=== PATIENT | male | born 1955 | race Caucasian/White ===

== ENCOUNTER → 2018-11-03 14:21 | Outpatient (CLI) | payer MEDICARE, SELFPAY ==
--- NOTE | 2018-11-03 14:22 | CT_ITS ---
STUDY: CT ABDOMEN AND PELVIS WITH AND WITHOUT CONTRAST REASON FOR EXAM: Male, 63 years old. Hematuria, bladder stones, difficulty with urination. RADIATION DOSAGE (If Supplied By Facility): CTDIvol = ( 21.44 ) mGy, DLP = ( 2622.14 ) mGycm TECHNIQUE: Transaxial images were obtained from the dome of the diaphragm to the symphysis pubis without oral contrast. 100 ml of Isovue 300 contrast was administered. Sagittal and coronal images were reconstructed. Imaging was obtained precontrast, portal venous phase and renal excretory phase of contrast. Individualized dose optimization techniques were used for this CT. COMPARISON: CT abdomen and pelvis 08/23/2016. FINDINGS: Body wall soft tissues: No acute process. Osseous structures: No acute process. Inferior chest: Lung bases clear, normal distal esophagus. No cardiomegaly or pericardial effusion. Mild aortic valve leaflet calcifications are present. Minimal coronary calcifications are visible in the proximal RCA. Hepatobiliary: Normal. Pancreas: Mild atrophy. Spleen: Normal. Adrenal glands: Normal. Urogenital: Right renal superior pole cyst measuring 7.5 mm, grossly simple cystic features, too small for definitive characterization. 3 left renal cysts, Bosniak category 1 simple cystic features, the largest measuring 3.5 cm. Otherwise normal right and left kidneys with symmetric nephrograms and symmetric excretion of contrast. Normal collecting systems and ureters. There is moderately prominent circumferential thickening of the wall of the urinary bladder, with mild trabeculation. There is a small diverticulum inferior medial to the left ureterovesical junction which contains small calculi. There are a few additional small diverticula of the left and right bladder wall containing stones. There are numerous small individual calcifications layering within the gallbladder. The prostate is enlarged, mildly bulging into the base of the urinary bladder, measuring approximately 6.1 cm craniocaudal, 4.4 cm anterior-posterior, and 4.5 cm transverse. Symmetric and unremarkable seminal vesicles. Pelvic floor and sidewalls and retroperitoneum: No mass or adenopathy. Vasculature: Mild atherosclerosis. Stomach: No acute process. Small bowel and mesentery: No acute process. Large bowel: Normal appendix. Diverticulosis without diverticulitis. Normal rectum. Free fluid or free air: None. CT/CT Abd/Pelvis W/WO Contrast IMPRESSION: 1. Numerous small bladder calculi. Each of the calculi measures in the range of 3 to 5 mm. Bladder wall thickening and trabeculation with small diverticula. Prostatomegaly, mild to moderate. The bladder calculi could be associated with prostatomegaly and partial bladder with obstruction but could also be associated with neurogenic bladder. 2. Benign left renal cysts. A very small cyst of the right kidney is too small for definitive characterization. Electronically Signed: Rich Alexis MD at 12:18 EST Tel , Service support ,
== END ==
PROVIDERS: Referring Provider Urology; Visit Provider Urology
DX: N21.0 Calculus in bladder (principal); R31.9 Hematuria, unspecified
CPT/HCPCS: 74178; Q9967

== ENCOUNTER 2018-11-30 05:49 | Day surgery (SDC) | payer MEDICARE, SELFPAY ==
[2018-11-23 13:32] VITALS: BP 146/74; PULSE 84; RESP 16; TEMP 37.1; O2SAT 97; BMI 28.2
--- NOTE | 2018-11-23 13:43 | SDCEKG_ITS ---
Test Reason : Blood Pressure : / mmHG Vent. Rate : 069 BPM Atrial Rate : 069 BPM P-R Int : 152 ms QRS Dur : 098 ms QT Int : 388 ms P-R-T Axes : 048 -05 046 degrees QTc Int : 415 ms Normal sinus rhythm Nonspecific T wave abnormality Abnormal ECG Confirmed by OCTAVIANO HARTLEY, INNA ([id number]), editor managing newspaper NICKY ARTEAGA ([id number]) on 11/24/2018 11:14:26 AM Referred By: Shubham Chin Confirmed By:INNA BRUMFIELD MD
--- NOTE | 2018-11-29 16:03 | PCM.HP.BLA ---
History and Physical Date of Admission: 11/30/18 63 yo male with h/o BPH on ct scan found to have enlarge prostate bladder stones having problems voiding. ALLERGIES: None MEDICATIONS: Flomax 0.4 mg capsule 1 capsule PO Q HS Herbs PSH: Cysto Bladder Stone >2.5cm - 09/09/2016 Cystoscopy Retrogrades - 09/09/2016 PSH Notes: surgery on rectum, cut a muscle NON- PSH: Colonoscopy - 2013 Patient not documented to have received pneumococcal vaccination PMH: Gross hematuria - 10/31/2018 Feeling of incomplete bladder emptying - 05/10/2017 Benign prostatic hyperplasia with lower urinary tract symptoms - 2016 Calculus in bladder - 08/24/2016 Calculus of ureter - 08/24/2016 NON- PMH: None Immunizations: None FAMILY HISTORY: Kidney Stones - Father SOCIAL HISTORY: Marital Status: Single Preferred Language: Slovenian; Ethnicity: Not Or ; Race: White Current Smoking Status: Patient has never smoked. Smoking cessation counseling was provided. Does not use smokeless tobacco. Light Drinker. Does not use drugs. Does not drink caffeine. Has not had a blood transfusion. REVIEW OF SYSTEMS: Constitutional: Patient denies fever, chills, weight loss, and weight gain. Genitourinary: Patient reports get up at night to void, frequent urination, and blood in the urine. Patient denies difficulty starting stream, urinary retention, frequent uti's, leakage of urine, bedwetting, painful urination, history of stones, and weak stream/scanty. Notes: Reviewed previous review of systems 10/31/2018. No changes. VITAL SIGNS: 11/08/2018 08:52 AM Weight 180 lb / 81.65 kg Height 70 in / 177.8 cm BP 126/82 mmHg BMI 25.8 kg/m? - BMI Counseling was provided. PHYSICAL EXAMINATION: Scrotum: No lesions. No edema. No cysts. No warts. Testes: No tenderness, no swelling, no enlargement left testes. No tenderness, no swelling, no enlargement right testes. Normal location left testes. Normal location right testes. No mass, no cyst, no varicocele, no hydrocele left testes. No mass, no cyst, no varicocele, no hydrocele right testes. Urethral Meatus: Normal size. No lesion, no wart, no discharge, no polyp. Normal location. Penis: Circumcised, no warts, no cracks. No dorsal Peyronie's plaques, no left corporal Peyronie's plaques, no right corporal Peyronie's plaques, no scarring, no warts. No balanitis, no meatal stenosis. Prostate: Prostate about 50 grams. Left lobe normal consistency, right lobe normal consistency. Symmetrical lobes. No prostate nodule. Left lobe no tenderness, right lobe no tenderness. MULTI-SYSTEM PHYSICAL EXAMINATION: Constitutional: Well-nourished. No physical deformities. Normally developed. Good grooming. Neck: Neck symmetrical, not swollen. Normal tracheal position. Respiratory: No labored breathing, no use of accessory muscles. Cardiovascular: Normal temperature, normal extremity pulses, no swelling, no varicosities. Lymphatic: No enlargement of neck, axillae, groin. Skin: No paleness, no jaundice, no cyanosis. No lesion, no ulcer, no rash. Neurologic / Psychiatric: Oriented to time, oriented to place, oriented to person. No depression, no anxiety, no agitation. Gastrointestinal: No mass, no tenderness, no rigidity, non obese abdomen. Eyes: Normal conjunctivae. Normal eyelids. Ears, Nose, Mouth, and Throat: Left ear no scars, no lesions, no masses. Right ear no scars, no lesions, no masses. Nose no scars, no lesions, no masses. Normal hearing. Normal lips. Musculoskeletal: Normal gait and station of head and neck. PAST DATA REVIEWED: Source Of History: Patient Records Review: Previous Patient Records Urine Test Review: Urinalysis 08/24/16 PSA Total PSA 1.35 ng/mL Notes [facility] [address] [place], [place] [address]. [place], [place], [id number] This test was performed using the TPSA assay method for the [employer] chemistry system. Values obtained with different assay methods cannot be used interchangably. When changing PSA assays in the course of monitoring a patient, additional sequential testing should be carried out to confirm baseline values. PROCEDURES: Urinalysis - 71652 Dipstick Dipstick Cont'd Specimen: Voided Blood: Neg Appearance: Clear Protein: Neg Color: Yellow Urobilinogen: Neg Glucose: Normal Nitrites: Neg Bilirubin: Neg Leukocyte Esterase: Neg Ketones: Neg ASSESSMENT: ICD-10 Details 1 : Benign prostatic hyperplasia with lower urinary tract symptoms - N40.1 2 Calculus in bladder - N21.0 3 Feeling of incomplete bladder emptying - R39.14 PLAN: Schedule Procedure: Unspecified Date - Cystoscopy TURP - 28603 Document Letter(s): Created for Patient: Clinical Summary The risks, benefits, and some of the possible complications of the proposed procedure were discussed with the patient at length and in detail including the possibility of postoperative urinary urgency, frequency, incontinence, dysuria, hematuria, retrograde ejaculation, urinary retention, bladder neck contracture, and urethral stricture, as well as the need for a bladder biopsy, retrograde pyelograms, resection of a bladder lesion, dilation of the urethra, postoperative catheterization, placement of a ureteral stent, discovering asymptomatic prostate cancer and others. The possible need for postoperative treatments including further surgical procedures was discussed with the patient. The general risks of the operative procedure and the perioperative period were discussed with the patient at length and in detail including swelling, pain, nausea, fever, infection, wound infection, sepsis, renal failure, internal or external bleeding, postoperative formation of scar tissue, the need for blood transfusions, deep venous thrombosis or blood clots, pulmonary embolus, pulmonary complications and cardiac complications. All of the patient's questions were answered and he voiced an understanding of these risks, benefits and possible complications. The patient gave fully informed consent to proceed with the procedure. Notes: plan for TURP and laser bladder stone tentative date november 30
[2018-11-30] VITALS (11 sets, daily range): BP systolic 115–141; BP diastolic 58–86; PULSE 67–76; RESP 16–18; TEMP 36.4–36.8; O2SAT 88–98; BMI 28.2
[2018-11-30] MEDS: Cefazolin 2 GM in 0.9% Normal Saline 100 ML IV (07:24)
--- NOTE | 2018-11-30 07:30 | PROS_PTH ---
PATIENT: KIMMIE BERRY [place] [facility] [place][id number] AGE/SX: 63/M ROOM: RE11/30/[address]: Dr. Shubham Chin MD : [id number] BED: DIS: 12/01/2018 SPEC #: [id number] RECD: 11/30/18 13:10 STATUS: KAE ANTONIO #: [id number] HENRIETTA: 11/30/18 07:[address]: Shubham Chin DEPT: SURGICAL PATHOLOGY RECD BY: Bon San ENTERED: 11/30/18 13:43 SP TYPE: TURP OTHR DR: No Primary Care Phys Tissues: Prostate, NOS Procedures: Surgery Specimen Level IV HEADER OPERATION: Cysto, litholapaxy, laser PRE-OP DIAGNOSIS: Benign prostatic hyperplasia with lower urinary tract symptoms TISSUE SUBMITTED: Bladder stones and prostate chips MICROSCOPIC DIAGNOSIS Bladder stones and prostate chips, TUR: Benign prostatic hyperplasia, glandular and stromal type. Chronic inflammation. Fragments of stone (gross only). JACQUELINE:angelo 12/01/18 MICROSCOPIC DESCRIPTION Slides are reviewed. GROSS DESCRIPTION Received in fixative is one container labeled with the patient's name and designated bladder stones and prostate tissue. The specimen consists of multiple irregular fragments of [id number] soft tissue mixed with multiple fragments of stones. The entire specimen weighs 20.5 gm and measures 7 x 7 x 2 cm. The stone fragments consist of [id number] irregular fragments that in aggregate measure 4 x 4 x 1.5 cm and the soft tissue measures 6 x 5 x 2 cm. More than 95% of the specimen is submitted in 12 cassettes. The stones are for gross identification only. / JACQUELINE:angelo 11/30/18 TC:5 CPT: 99723
--- NOTE | 2018-11-30 09:14 | DCINST_ITS ---
Discharge Diet: Light diet - advance as tolerated Discharge Activity: May not drive while taking narcotic pain medications. Call your doctor if your incision/area has: Continuous Slow Oozing, Sudden Increased Bleeding, Increased Redness, Foul Smelling Discharge, Swelling at the incision site Call your doctor if you observe: Fever of 101 or Higher Instructions: Transurethral Resection of the Prostate (TURP): Home Recovery Allergies/Adverse Reactions: Allergies No Known Allergies Allergy (Verified 11/23/18 13:21) Medications to take at Discharge Tamsulosin HCl [Flomax] 0.4 mg PO DAILY 14 Days capsule 08/23/16 Ciprofloxacin [Cipro] 500 mg PO BID #14 tablet 11/30/18 Ibuprofen 600 mg PO Q6H PRN PRN #20 tablet 11/30/18 The following prescriptions were given: Ibuprofen 600 mg PO Q6H PRN PRN #20 tablet PRN Reason: Pain Ciprofloxacin [Cipro] 500 mg PO BID #14 tablet Primary Care Physician: Care Physician,No Primary [Primary Care Provider] - Test Results: Test results from this visit will be discussed in further detail at your follow- up appointment, if applicable. Please Follow Up With: Shubham Chin MD When: in 2 weeks, please call to make an appointment.
--- NOTE | 2018-11-30 09:14 | PCM.OPRPT ---
Report of Operation Date of Procedure: 11/30/18 Pre-Operative Diagnosis: Bladder stones and BPH with obstruction Post-Operative Diagnosis: Same Surgery/Procedure Performed:: Cystoscopy laser cystolitholapaxy of multiple large bladder stones and evacuation of bladder stones and transurethral resection of the prostate. Description of Surgical Findings:: 63-year-old male with a history of BPH and obstruction he presented to the office with more urinary symptoms cystoscopy was performed is found to have a multitude of stones within the bladder large collection of bladder stones because of this I recommended we remove the bladder stones of the laser and evacuate the bladder stones performed cystolitholapaxy and also perform a TURP for his obstructive prostate. 63-year-old male taken back to the operating room after smooth induction of general anesthesia he was placed supine on the table and then a dorsolithotomy position. We had a change the table because there was a broken piece on the prior table. We then placed the patient in dorsolithotomy position penis and testicles were prepped and draped in usual sterile fashion went into the bladder with a 26 Macanese continuous flow resectoscope I then placed the laser bridge to the resectoscope and then laser the stones inside the bladder with 1000 ?m laser fiber using energy fibers of 3.5 J and 6 Hz after lasering the stones I evacuated all the fragments out of the bladder we then switched over to the resectoscope he had a enlarged median lobe causing obstruction he had bilateral lobes as well median lobe was resected down to the bladder neck fibers resected back to the verumontanum I then resected the right lobe the prostate back to the verumontanum resect the left lobe the prostate back to the verumontanum very carefully resected the apical tissue sphincter was intact at the end of the dissection all the flapping tissue was resected he had a nice wide open channel from the sphincter all the way into the bladder the bladder was heavily trabeculated with many saccules diverticuli is very small no large diverticulum was seen all the small fragments and then removed all the prostate chips were removed and then the catheter was put into the bladder on continuous bladder irrigation is taken back to PACU good condition. Type of Anesthesia:: General Drains: 3 way vincent 22 fr. - Admit VTE Documentation VTE Present on Admission: No
[2018-11-30] MEDS: 0.9% Normal Saline 1,000 ML 75 ML IV (11:47)
[2018-11-30] MEDS: Tamsulosin HCl 0.4 MG Capsule PO (11:47)
[2018-11-30] MEDS: Pantoprazole Sodium 40 MG Tablet PO (11:47)
[2018-11-30] MEDS: Docusate Sodium 100 MG Capsule PO ×2 (11:47→21:17)
[2018-11-30] MEDS: 0.9% NaCl Peripheral Flush Adult/Peds IV (11:48)
[2018-11-30] MEDS: Ciprofloxacin 400 MG/200 ML BAG 200 MG IV (14:20)
[2018-12-01] MEDS: 0.9% Normal Saline 1,000 ML 75 ML IV (00:25)
[2018-12-01 03:25] VITALS: BP 131/55; PULSE 64; RESP 18; TEMP 36.8; O2SAT 95
[2018-12-01] MEDS: Ciprofloxacin 400 MG/200 ML BAG 200 MG IV (03:30)
[2018-12-01 06:42] LABS: Hematocrit 38.6 % (40-54); Hemoglobin 12.4 g/dl (13.0-16.5); Mean Corp Hgb Conc 32.1 g/gl (32-36); Mean Corpuscular Hgb 29.6 pg (27.0-32.0); Mean Corpuscular Volume 92.1 fL (80-94); Mean Platelet Vol. 10.2 fl (6.2-12.0); Platelet Count 187 K/mm3 (150-450); Red Blood Count 4.19 M/mm3 (4.6-6.2); White Blood Count 9.9 K/mm3 (4.4-11.0)
[2018-12-01 06:49] LABS: Anion Gap 6 (5-15); BUN 21 mg/dL (7-18); BUN/Creat Ratio 17.8 RATIO (10-20); Calcium,Total 7.9 mg/dL (8.5-10.1); Chloride 109 mmol/L (98-107); Creatinine, Serum 1.18 mg/dL (0.70-1.30); EST Glomerular Filtration Rate 66 mL/min (>60); Est Glom Filt Rate - Afr Amer 80 mL/min (>60); Estimated Creatinine Clearance 64.44 ml/min; Glucose 116 mg/dL (74-106); Potassium 4.1 mmol/L (3.5-5.1); Sodium Level 141 mmol/L (136-145)
[2018-12-01 06:50] LABS: Scan Indicated on CBC? Y/N NO
--- NOTE | 2018-12-01 07:38 | PCM.PN.BLA ---
Progress Note s/p turp doing well this am irrigtion slow, urine light pink dc vincent home after voids x 3 check pvr call if > 200cc
[2018-12-01 09:25] VITALS: BP 128/75; PULSE 66; RESP 18; TEMP 36.7; O2SAT 96
[2018-12-01] MEDS: Docusate Sodium 100 MG Capsule PO (09:38)
[2018-12-01] MEDS: Tamsulosin HCl 0.4 MG Capsule PO (09:38)
[2018-12-01] MEDS: Pantoprazole Sodium 40 MG Tablet PO (09:39)
== END 2018-12-01 13:24 | disposition home or self-care (01) ==
LOC: SDC 05:56 → AC 05:56 → MS3 08:31
PROVIDERS: Referring Provider Urology; Visit Provider Urology
PROC: (CPT 52318; principal; 2018-11-30 07:15)
PROC: (CPT 52318; 2018-11-30 07:15)
DX: N21.0 Calculus in bladder (principal); N40.1 Benign prostatic hyperplasia with lower urinary tract symptoms; N13.8 Other obstructive and reflux uropathy
CPT/HCPCS: 52318; 52601; 36415; 80048; 85027; 88305; 93005; J7030; J7120; A4216; J0744; J2405

== ENCOUNTER → 2019-02-28 | Outpatient (CLI) | payer MEDICARE, SELFPAY ==
[2018-11-30 10:49] VITALS: BMI 28.2
[2019-02-28 10:54] LABS: Hematocrit 47.5 % (40-54); Hemoglobin 15.5 g/dl (13.0-16.5); Mean Corp Hgb Conc 32.6 g/gl (32-36); Mean Corpuscular Hgb 28.5 pg (27.0-32.0); Mean Corpuscular Volume 87.3 fL (80-94); Mean Platelet Vol. 10.4 fl (6.2-12.0); Platelet Count 185 K/mm3 (150-450); RBC Distribution Width SD 45.5 fl (35.1-43.9); Red Blood Count 5.44 M/mm3 (4.6-6.2); White Blood Count 4.8 K/mm3 (4.4-11.0)
[2019-02-28 10:55] LABS: Scan Indicated on CBC? Y/N NO
[2019-02-28 11:24] LABS: Anion Gap 6 (5-15); BUN 28 mg/dL (7-18); BUN/Creat Ratio 21.2 RATIO (10-20); Calcium,Total 9.2 mg/dL (8.5-10.1); Chloride 103 mmol/L (98-107); Creatinine, Serum 1.32 mg/dL (0.70-1.30); EST Glomerular Filtration Rate 58 mL/min (>60); Est Glom Filt Rate - Afr Amer 70 mL/min (>60); Glucose 107 mg/dL (74-106); Potassium 4.2 mmol/L (3.5-5.1); Sodium Level 138 mmol/L (136-145)
== END | disposition home or self-care (01) ==
LOC: LAB 10:18
PROVIDERS: Referring Provider Urology; Visit Provider Urology
DX: N40.0 Benign prostatic hyperplasia without lower urinary tract symptoms (principal); R53.83 Other fatigue
CPT/HCPCS: 36415; 80048; 84153; 84403; 85027

== ENCOUNTER 2021-11-23 07:38 | Emergency (ER) | payer MEDICARE, SELFPAY ==
[2021-11-23 07:39] VITALS: BP 154/97; PULSE 101; RESP 16; TEMP 35.7; O2SAT 98; BMI 25.8
--- NOTE | 2021-11-23 08:01 | EDS_ITS ---
HPI History of Present Illness Chief Complaint: Cold Sx Narrative Narrative: Patient is a 66-year-old male who states he has had approximately 5 days of nasal congestion sore throat cough and fatigue. He denies any known sick contacts or history of smoking or lung disorder or need for supplemental oxygen. He states he is fully vaccinated against Covid. He reports that he did a telemetry visit with his family doctor and was placed on a Z-Mello which he has taken 2 doses of. He states despite this he has had no symptom improvement and therefore comes to the hospital for evaluation [facility] Home Medications tamsulosin 0.4 mg PO DAILY 14 Days capsule 08/23/16 [Rx Last Taken Unknown] ciprofloxacin HCl 500 mg PO BID #14 tablet 11/30/18 [Rx Last Taken Unknown] ibuprofen 600 mg PO Q6H PRN PRN #20 tab 11/30/18 [Rx Last Taken Unknown] azelastine 2 spray INTRANASAL BID #30 ml 11/23/21 [Rx Last Taken Unknown] prednisone 20 mg PO DAILY 5 Days #5 tab 11/23/21 [Rx Last Taken Unknown] promethazine-codeine 5 ml PO Q6H PRN 7 Days #140 ml 11/23/21 [Rx Last Taken Unknown] Allergy/AdvReac Type Severity Reaction Status Date / Time No Known Allergies Allergy Verified 11/23/21 07:41 Social History Smoking Status: Never smoker [facility] ED Constitutional Constitutional ED: Reports chills, fever(s) and subjective ENT ENT ED: Reports ear pain, rhinorrhea and sore throat Cardiovascular Cardiovascular: Denies chest pain Respiratory/Chest Respiratory/Chest: Reports cough and sputum; Denies dyspnea Gastrointestinal Gastrointestinal: Denies abdominal pain, diarrhea, nausea or vomiting Genitourinary Genitourinary ED: Denies dysuria Musculoskeletal Musculoskeletal: Reports myalgias Integumentary Denies rash Neurologic Neurologic: Denies headache(s) Hematologic/Lymphatic Hematologic/Lymphatic: Denies easy bleeding or easy bruising EXAM Physical Exam Const Vital Signs: 11/23/21 07:39 11/23/21 07:49 Temperature 96.2 F L Temperature Source Temporal Pulse Rate 101 H Respiratory Rate 16 Respiratory Effort Short of Breath Blood Pressure 154/97 H Blood Pressure Mean 116 Pulse Ox 98 Oxygen Delivery Method Room Air Room Air Positive well nourished and well developed General Appearance ED: well developed HEENT Reports moist mucous membranes HEENT Narrative: Bilateral TMs are retracted but show no secondary changes to suggest infection. Nasal mucosa is hyperemic and boggy with enlarged inferior nasal turbinate. Patient has cobblestoning the posterior pharynx consistent with sinus drainage but no airway edema or compromise. Eyes PERRL and EOMs intact bilaterally Neck supple and no JVD Neck Narrative: Positive anterior cervical lymphadenopathy noted Resp normal respiratory effort and clear to auscultation bilaterally Cardio regular rate and regular rhythm Extremity normal to inspection Extremity Narrative: No asymmetric edema no pitting edema negative Homans' sign bilaterally Neuro oriented x3 and CN's II-XII intact bilaterally Sensorium / Orientation: alert Motor Exam: strength 5/5 throughout Psych mental status grossly normal Skin no rashes or lesions noted MDM MDM MDM Narrative Medical decision making narrative: Patient presented to the ER afebrile satting 98% on room air in no acute respiratory distress. His constellation of symptoms is consistent with a upper respiratory tract infection. However as he is folic symptoms have been worsening I did elect to perform a chest x-ray along with influenza and Covid swab. I believe that if the influenza and Covid swabs are negative and x-ray does not show any pneumonia that he will be safe for discharge which is symptomatic care. If the swabs are negative and x-ray shows infiltrate I believe he should be transitioned from Zithromax to doxycycline but as he is not hypoxic or requiring submental oxygen is still safe for discharge Discharge Plan Triage Chief Complaint: Cold Sx ED Provider: Asael Hutchins Dx/Rx/DC Orders Clinical Impression: Viral upper respiratory tract infection Instructions: ED URI, Viral, No Abx (Adult) Prescriptions: New prednisone 20 mg tablet 20 mg PO DAILY 5 Days Qty: 5 RF: 0 azelastine 137 mcg (0.1 %) aerosol,spray 2 spray intranasal BID Qty: 30 RF: 0 promethazine-codeine 6.25-10 mg/5 mL syrup 5 ml PO Q6H PRN (Reason: cough) 7 Days Qty: 140 RF: 0 No Action tamsulosin 0.4 MG capsule 0.4 mg PO DAILY 14 Days RF: 0 ciprofloxacin HCl 500 MG tablet 500 mg PO BID Qty: 14 RF: 0 ibuprofen 600 MG tablet 600 mg PO Q6H PRN PRN (Reason: Pain) Qty: 20 RF: 0 Primary Care Provider: Carlos Carrera Referrals: Carlos Carrera DO [Primary Care Provider] - Disposition Disposition: Home, Self Care
--- NOTE | 2021-11-23 08:10 | RAD_ITS ---
STUDY: X-RAY CHEST REASON FOR EXAM: Male, 66 years old. cough TECHNIQUE: Single AP portable view of the chest. COMPARISON: None. FINDINGS: The lungs are clear and expanded. There is no demonstrated pleural abnormality. Normal size heart. Normal mediastinum and heron. Normal visualized pulmonary arteries. Normal visualized aortic arch and descending thoracic aorta. Normal visualized thoracic spine. Normal visualized ribs, clavicles, and shoulders. There is no demonstrated abnormality of the visualized soft tissue structures of the upper abdomen. RAD/Chest 1 View (Portable) IMPRESSION: Normal x-ray examination of the chest. Electronically Signed: Rich Badillo MD at 8:41 EDT ,
[2021-11-23] MEDS: Doxycycline 100 MG CAPSULE PO (09:26)
== END 2021-11-23 09:28 | disposition home or self-care (01) ==
PROVIDERS: Emergency Provider Emergency Medicine; PCP Family Medicine; Visit Provider Emergency Medicine
DX: J06.9 Acute upper respiratory infection, unspecified (principal); Z20.822 Contact with and (suspected) exposure to COVID-19; Z79.899 Other long term (current) drug therapy
CPT/HCPCS: 71045; 87426; 87804; 99281; 99283

== ENCOUNTER 2021-12-03 14:55 | Emergency (ER) | payer MEDICARE, SELFPAY ==
[2021-12-03 14:56] VITALS: BP 134/76; PULSE 81; RESP 18; TEMP 36.1; O2SAT 93; BMI 27.3
--- NOTE | 2021-12-03 15:20 | EDS_ITS ---
HPI HPI - URI History of Present Illness Chief Complaint: Cough Detail of Chief Complaint: Cough, fatigue and shortness of breath with significant exertion Informant: patient Onset/Context/Timing Onset: Weeks (Onset 2 weeks ago) Context: Sudden Onset Timing: Continuous Quality: Upper respiratory symptoms a continuous since onset. The cough is been int Current Severity: Mild Maximum Severity: Moderate Worsened by: Not Worsened By Swallowing, Eating Solids and Drinking Liquids Relieved by: Not Relieved By Tylenol and NSAIDs Associated Symptoms Associated Symptoms: Positive for Nasal Congestion, Shortness of Breath and Nonproductive cough; Negative for Headache, Sinus Pressure, Myalgias, Nausea, Vomiting, Diarrhea, Chest Pain, Hemoptysis and Productive Cough Narrative Narrative: Patient is a 66-year-old male who presents with abrupt systems that started approximate 2 weeks ago. He was seen in the emergency [facility] had an x- ray that time of the evaluation and was negative. Is a non-smoker. He he is a yepez. He states he cannot exert himself significantly because he will become slightly short of breath. He has no known pulmonary problems as an adult or child. He has no cardiac problems. His present medication for BPH. He was treated with doxycycline. He states he completed the course of doxycycline. He states his chest feels worse than when he was seen. He denies headache, visual, ocular auditory symptoms. He does report significant congestion in the nasal passages. He denies chest discomfort. Denies GI or symptoms. He denies myalgias or arthralgias. He denies documented fever. Prior similar symptoms: Yes Recent Illness/Hospitalization: Yes [facility] ED Constitutional Constitutional ED: Denies chills, fever(s), subjective, sweats or weight loss Eyes Eyes: Denies blurry vision or change in vision ENT ENT ED: Reports rhinorrhea; Denies ear pain or sore throat Cardiovascular Cardiovascular: Reports other Details: He denies orthopnea or PND. He denies leg swelling. ; Denies chest pain, orthopnea, palpitations, paroxysmal nocturnal dyspnea or racing heartbeat Respiratory/Chest Respiratory/Chest: Reports cough, dyspnea on exertion and other Details: Cough is worse when he is supine and he has difficulty sleeping because of this. ; Denies dyspnea, orthopnea, paroxysmal nocturnal dyspnea or sputum Gastrointestinal Gastrointestinal: Denies abdominal pain, diarrhea, nausea or vomiting Genitourinary Genitourinary ED: Denies dysuria, hematuria or urinary frequency Musculoskeletal Musculoskeletal: Denies arthralgias, back pain, myalgias or neck pain Endocrine Endocrinology: Denies polydipsia, polyphagia or polyuria PFSH PFSH Home Medications tamsulosin 0.4 mg PO DAILY 14 Days capsule 08/23/16 [Rx Last Taken Unknown] ciprofloxacin HCl 500 mg PO BID #14 tablet 11/30/18 [Rx Last Taken Unknown] ibuprofen 600 mg PO Q6H PRN PRN #20 tab 11/30/18 [Rx Last Taken Unknown] azelastine 2 spray INTRANASAL BID #30 ml 11/23/21 [Rx Last Taken Unknown] doxycycline hyclate 100 mg PO BID #7 tab 11/23/21 [Rx Last Taken Unknown] prednisone 20 mg PO DAILY 5 Days #5 tab 11/23/21 [Rx Last Taken Unknown] promethazine-codeine 5 ml PO Q6H PRN 7 Days #140 ml 11/23/21 [Rx Last Taken Unknown] Allergy/AdvReac Type Severity Reaction Status Date / Time No Known Allergies Allergy Verified 12/03/21 14:56 Social History (Updated 12/03/21 @ 15:[address] Matthias Sorensen MD) household members: spouse Smoking Status: Never smoker substance use type: does not use EXAM Physical Exam Const Vital Signs: 12/03/21 14:56 12/03/21 15:26 12/03/21 15:28 Temperature 96.9 F L Temperature Source Temporal Pulse Rate 81 77 Respiratory Rate 18 16 Respiratory Effort Normal Respiratory Depth Normal Respiratory Pattern Normal Blood Pressure 134/76 H 125/81 H Blood Pressure Mean 95 95 Pulse Ox 93 96 Oxygen Delivery Method Room Air Room Air Room Air Positive well nourished and well developed General Appearance ED: well developed and NAD; Negative for cyanotic, diaphoretic or pallor HEENT Reports TM's clear and moist mucous membranes normocephalic and atraumatic Face and Sinus: Negative for facial tenderness External Ear: external ears normal External Auditory Canal: EAC's normal Tympanic Membrane ED: Yes TM's clear Throat: posterior oropharynx normal Eyes PERRL and EOMs intact bilaterally General Eye ED: Negative for pale conjunctiva or scleral icterus Neck no lymphadenopathy, supple, no meningeal signs and no JVD Neck Narrative: There is no inspiratory or expiratory stridor. Trachea is midline. Resp normal respiratory effort and No clear to auscultation bilaterally Effort and Inspection: Negative for retractions or pain with movement Auscultation: rales left lower; Negative for diminished lung sounds Cardio S1 normal heart sound, S2 normal heart sound and no murmurs Rate: regular rate Rhythm: regular rhythm GI no masses Auscultation: normoactive bowel sounds Palpation: soft Neuro oriented x3 and CN's II-XII intact bilaterally Sensorium / Orientation: alert, oriented to person and oriented to place Psych mental status grossly normal Skin General Skin Exam: Negative for jaundice or pallor Lesions: no lesions Rashes: no rashes MDM MDM MDM Narrative Medical decision making narrative: Since patient has abnormal breath sounds on the left obtain chest x-ray determine if he has pneumonia. This most likely represents a viral illness. Radiography Diagnostic Testin view x-ray of the chest was independently and reviewed and interpreted by me as negative for any acute process. There is minimal chronic changes of the lung. The cardiac silhouette is size are normal. The perihilar regions normal. The ostia structures are unremarkable. Discharge Plan Triage Chief Complaint: Cough Other Complaint: Cold Sx ED Provider: Matthias Sorensen Dx/Rx/DC Orders Clinical Impression: Bronchitis Instructions: ED Bronchitis, No Antibiotic (Adult) Prescriptions: No Action tamsulosin 0.4 MG capsule 0.4 mg PO DAILY 14 Days RF: 0 ciprofloxacin HCl 500 MG tablet 500 mg PO BID Qty: 14 RF: 0 ibuprofen 600 MG tablet 600 mg PO Q6H PRN PRN (Reason: Pain) Qty: 20 RF: 0 prednisone 20 mg tablet 20 mg PO DAILY 5 Days Qty: 5 RF: 0 azelastine 137 mcg (0.1 %) aerosol,spray 2 spray intranasal BID Qty: 30 RF: 0 promethazine-codeine 6.25-10 mg/5 mL syrup 5 ml PO Q6H PRN (Reason: cough) 7 Days Qty: 140 RF: 0 doxycycline hyclate 100 mg tablet 100 mg PO BID Qty: 7 RF: 0 Primary Care Provider: Carlos Carrera Referrals: Carlos Carrera DO [Primary Care Provider] - 1 Week if not improving Disposition Disposition: Home, Self Care
[2021-12-03 15:26] VITALS: O2SAT 97
[2021-12-03 15:28] VITALS: BP 125/81; PULSE 77; RESP 16; O2SAT 96
--- NOTE | 2021-12-03 15:38 | RAD_ITS ---
HISTORY: cough x 2 weeks covid negative. TECHNIQUE: XR Chest 2 Views. # of images incl. paperwork: 2. COMPARISON: 11/23/2021. FINDINGS: CARDIOMEDIASTINAL STRUCTURES: Cardiac silhouette not enlarged. Mediastinal contour unremarkable. LUNGS: Radiographically clear. PLEURA: No pleural effusion or pneumothorax. OSSEOUS STRUCTURES: Unremarkable. RAD/Chest PA and Lateral IMPRESSION: No radiographic evidence of acute cardiopulmonary disease. at 1618 Reported and signed by: Xi Delaney MD Electronically Signed: Xi Delaney MD at 16:12 EDT ,
[2021-12-03 16:10] VITALS: BP 129/76; PULSE 74; RESP 16
== END 2021-12-03 16:11 | disposition home or self-care (01) ==
PROVIDERS: Emergency Provider Emergency Medicine; PCP Family Medicine; Visit Provider Emergency Medicine
DX: J40 Bronchitis, not specified as acute or chronic (principal); N40.0 Benign prostatic hyperplasia without lower urinary tract symptoms; Z79.899 Other long term (current) drug therapy
CPT/HCPCS: 71046; 99282

== ENCOUNTER 2022-11-06 13:47 | Emergency (ER) | payer MEDICARE, SELFPAY ==
[2022-11-06 13:48] VITALS: BP 192/98; PULSE 73; RESP 16; TEMP 36.2; O2SAT 97; BMI 27.6
--- NOTE | 2022-11-06 14:36 | EDS_ITS ---
HPI History of Present Illness Chief Complaint: Back Informant: patient Narrative Narrative: 67-year-old male presenting with 5 days of gradual onset pain in his low back around the area where he had surgery remotely, that sounds like a microdiscectomy no hardware placed, more on the right side now though and radiating into his right thigh. Occasionally he has some pains that shoot below the knee but for the most part staying in his thigh. 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 He denies any weakness or numbness/tingling in his lower extremities, no bowel or bladder dysfunction or saddle anesthesia. He states definitely is something new usually does not have pain, and in the last several days he has also noticed random unusual throbbing pains in his upper arms bilaterally. No chest pain, shortness of breath, palpitation, abnormal sweating, or syncope/near syncope. Denies any neck pain. PFSH PFSH Medical History no medical history no medical history Home Medications tamsulosin 0.4 mg capsule 0.4 mg PO DAILY 14 days 08/23/16 [Rx Last Taken Unknown] ibuprofen 600 mg tablet 600 mg PO Q6H PRN PRN Pain #20 tabs 11/30/18 [Rx Last Taken Unknown] prednisone 20 mg tablet 40 mg PO DAILY #10 TABLETS 11/06/22 [Rx Last Taken Unknown] Allergy/AdvReac Type Severity Reaction Status Date / Time No Known Allergies Allergy Verified 11/06/22 13:47 Surgical History (Updated 11/06/22 @ 14:[address] Jose Duke MD) Previous back surgery Social History household members: spouse Smoking Status: Never smoker substance use type: does not use ROS ROS ED Constitutional Constitutional ED: Denies chills or fever(s) Eyes Eyes: Denies change in vision or diplopia ENT ENT ED: Denies rhinorrhea or sore throat Cardiovascular Cardiovascular: Denies chest pain or palpitations Respiratory/Chest Respiratory/Chest: Denies cough or dyspnea Gastrointestinal Gastrointestinal: Denies abdominal pain, constipation, fecal incontinence, nausea or vomiting Genitourinary Genitourinary ED: Reports other Details: no urinary retention ; Denies abdominal discomfort or urinary incontinence Musculoskeletal Musculoskeletal: Reports as per HPI, back pain and extremity pain; Denies neck pain Integumentary Denies rash or wounds Neurologic Neurologic: Denies headache(s), paresthesias or weakness Psychiatric Psychiatric: Denies anxiety or suicidal thoughts EXAM Physical Exam Const Vital Signs: 11/06/22 13:48 Temperature 97.1 F L Temperature Source Temporal Pulse Rate 73 Respiratory Rate 16 Blood Pressure 192/98 H Blood Pressure Mean 129 Pulse Ox 97 Oxygen Delivery Method Room Air Positive well nourished and well developed General Appearance ED: well developed and NAD HEENT Reports moist mucous membranes Negative for trauma or tenderness Eyes PERRL and EOMs intact bilaterally Neck full ROM and supple Resp normal respiratory effort and clear to auscultation bilaterally Cardio regular rate, regular rhythm and no murmurs Cardio Narrative: Bilateral symmetric 2+ radial and dorsalis pedis pulses GI normal to inspection, nondistended, normoactive bowel sounds, soft to palpation and non-tender Auscultation: normoactive bowel sounds Palpation: soft Back/Spine normal to inspection General Back: other FROM Lumbar Spine / Lower Back: ROM limited, lumbar spinal tenderness, paraspinal muscle tenderness and straight leg raise negative bilaterally Extremity normal to inspection, full ROM and no pedal edema General Extremety ED: Negative for edema, pulses abnormal or tenderness General Extremity: Negative for edema or pulses abnormal Neuro oriented x3 and no sensory deficits noted Sensorium / Orientation: alert Motor Exam: strength 5/5 throughout and clonus absent Deep Tendon Reflexes: Rt Patellar (L4): 2+, Lt Patellar (L4): 2+, Rt Ankle (S1): 2+ and Lt Ankle (S1): 2+ Deep Tendon Reflexes Back: Rt Patellar (L4): 2+, Lt Patellar (L4): 2+, Rt Ankle (S1): 2+ and Lt Ankle (S1): 2+ Plantar Reflex: Downgoing: bilateral Psych mental status grossly normal and thought process normal Skin no rashes or lesions noted and no wounds MDM MDM MDM Narrative Medical decision making narrative: Patient with abnormal low back pain for him radiating into his right lower extremity, he is tender at the sciatic notch/piriformis, however he has negative straight leg raises without any radicular symptoms reproducible, including cross leg straight leg raises while sitting. He did not have increased low back pain, just stretching of his calf and hamstrings. Because of his blood pressure in triage at 192/98 and the unusual intermittent symptoms in his arms, I obtained a cardiac work-up as well. EKG on my interpretation is normal, his troponin is negative, and his other blood test including metabolic panel and CBC are normal, these were obtained because he did not have any recent old measurements in the system. He has been having no chest pain or dyspnea on exertion to suggest this is definitely angina, but since the screen is negative I do not think he needs any other emergent work-up for it. Given the symptoms I also obtained x-rays of the cervical and lumbar spine. 3 view of the cervical spine negative for any acute, 3 views of the lumbar spine negative for any acute, multilevel age- related degenerative changes seen, radiology interpretation reviewed as well. These are nonspecific changes may or may not have anything to do with the patient's painful complaints. He was offered analgesics and declined. We rechecked his blood pressure, it was 163/81. Patient states he has never had high blood pressure rechecked 3 weeks ago and it was normal, at local pharmacy which she does periodically. Given this, I would follow-up with his PCP for outpatient recheck without necessarily prescribing him antihypertensives at this time. He understands all this, I will prescribe him a short course of prednisone to see if that helps with his low back and right lower extremity pain which may be musculoskeletal in etiology, may also be due to a disc issue but he has no symptoms of cauda equina syndrome or other spinal cord compression syndrome at this time so he does not require an MRI emergently. Lab Data Attestation: I reviewed the patient's lab results. Labs: Laboratory Results - last 24 hr 11/06/22 11/06/22 14:55 14:55 WBC 5.5 RBC 4.90 Hgb 14.2 Hct 43.0 MCV 87.8 MCH 29.0 MCHC 33.0 RDW Std Deviation 45.1 H RDW Coeff of Colt 14.0 Plt Count 163 MPV 9.5 Immature Gran % (Auto) 0.200 Neut % (Auto) 67.9 Lymph % (Auto) 21.8 [place] % (Auto) 6.9 Eos % (Auto) 2.7 Baso % (Auto) 0.5 Absolute Neuts (auto) 3.7 Absolute Lymphs (auto) 1.20 Nucleated RBC % 0 Sodium 140 Potassium 3.8 Chloride 110 H Carbon Dioxide 24.0 Anion Gap 6 BUN 26 H Creatinine 1.29 Estim Creat Clear Calc 55.80 Est GFR (MDRD) Af Amer 71 Est GFR (MDRD) Non-Af 59 L BUN/Creatinine Ratio 20.2 H Glucose 103 Calcium 9.1 Troponin I High Sens 8 Radiography Diagnostic Testing: Clinical Impression(s) from Imaging Studies Cervical Spine X-Ray 11/06/22 15:10 IMPRESSION: Multilevel disc space narrowing and spondylosis. Loss of the normal cervical lordosis. Electronically Signed: Chalo English MD at 15:28 EST , Lumbar Spine X-Ray 11/06/22 15:10 IMPRESSION: Multilevel disc space narrowing. Minimal anterior listhesis of L4 on L5. Electronically Signed: Chalo English MD at 15:29 EST , Rhythm Strip Rhythm Strip: Sinus Rhythm Rate: 60 Ectopy: None EKG Initial EKG: Attestation: I personally reviewed and interpreted this EKG as follows: Interpretation: Sinus Rhythm and No Acute Injury Pattern Comments: normal EKG Discharge Plan Triage Chief Complaint: Back ED Provider: Jose Duke Dx/Rx/DC Orders Clinical Impression: Acute right-sided low back pain, Bilateral arm pain, Episode of hypertension Instructions: Hypertension Dc, ED Back Pain (Acute or Chronic) Prescriptions: New prednisone 20 mg tablet 40 mg PO DAILY Qty: 10 0RF No Action tamsulosin 0.4 MG capsule 0.4 mg PO DAILY 14 Days 0RF ibuprofen 600 MG tablet 600 mg PO Q6H PRN PRN (Reason: Pain) Qty: 20 0RF Primary Care Provider: Carlos Carrera Referrals: Carlos Carrera, [Primary Care Provider] - (Next week for reevaluation of your symptoms and blood pressure, call for appointment) Disposition Disposition: Home, Self Care
--- NOTE | 2022-11-06 14:36 | EKG12_ITS ---
Test Reason : BACK LEG PAIN Blood Pressure : / mmHG Vent. Rate : 059 BPM Atrial Rate : 059 BPM P-R Int : 150 ms QRS Dur : 098 ms QT Int : 410 ms P-R-T Axes : 065 -06 058 degrees QTc Int : 405 ms Sinus bradycardia Nonspecific T wave abnormality Abnormal ECG Confirmed by MARBELLA HARTLEY, SIMON ([id number]), web editor NICKY ARTEAGA ([id number]) on 11/10/2022 8:52:45 AM Referred By: Confirmed By:SIMON TYSON MD
[2022-11-06 15:06] LABS: Absolute Neutrophil Count 3.7 X10^3/uL (2.0-7.7); Basophil# 0.03 X10^3/uL; Basophil% 0.5 % (0-1); Eosinophil# 0.15 X10^3/uL; Eosinophils% 2.7 % (0-5); Hemoglobin 14.2 g/dL (13.0-16.5); Lymphocyte % 21.8 % (19-41); Mean Corpuscular Volume 87.8 fL (80-94); Mean Platelet Vol. 9.5 fl (6.2-12.0); Monocyte# 0.38 X10^3/uL; Monocyte% 6.9 % (0-10); NRBC Flagged by Analyzer 0 % (0-5); Neutrophil # 3.73 X10^3/uL (2.7-7.7); Neutrophil % 67.9 % (47-70); Platelet Count 163 K/mm3 (150-450); RBC Distribution Width SD 45.1 fl (35.1-43.9); White Blood Count 5.5 K/mm3 (4.4-11.0)
--- NOTE | 2022-11-06 15:10 | RAD_ITS ---
STUDY: X-RAY - LUMBAR SPINE REASON FOR EXAM: Male, 67 years old. Pain TECHNIQUE: 3 view(s) of the lumbar spine were obtained. COMPARISON: None FINDINGS: Normal lumbar lordosis. There is no substantial scoliosis. Minimal anterior listhesis of L4 on L5. Normal vertebral bodies and endplates. There is multi-level degenerative disc disease with multi-level disc space narrowing. Facet joint osteoarthritis. The soft tissue structures are unremarkable. RAD/Lumbar Spine 2 or 3 Views IMPRESSION: Multilevel disc space narrowing. Minimal anterior listhesis of L4 on L5. Electronically Signed: Chalo English MD at 15:29 EST ,
--- NOTE | 2022-11-06 15:10 | RAD_ITS ---
STUDY: X-RAY - CERVICAL SPINE REASON FOR EXAM: Male, 67 years old. Upper extremity pain. TECHNIQUE: 3 view(s) of the cervical spine were obtained. COMPARISON: None FINDINGS: There are degenerative changes of the anterior atlantoaxial articulation. Normal odontoid process. There is straightening of the normal cervical lordosis. There is multi-level endplate spondylosis. There is multi-level degenerative disc disease with multilevel disc space narrowing. Normal visualized intervertebral neuroforamina. The soft tissue structures are unremarkable. RAD/Cerv Spine 2 or 3 Views IMPRESSION: Multilevel disc space narrowing and spondylosis. Loss of the normal cervical lordosis. Electronically Signed: Chalo English MD at 15:28 EST ,
[2022-11-06 15:21] LABS: Anion Gap 6 (5-15); BUN 26 mg/dL (7-18); BUN/Creat Ratio 20.2 RATIO (10-20); Calcium,Total 9.1 mg/dL (8.5-10.1); Chloride 110 mmol/L (98-107); Creatinine, Serum 1.29 mg/dL (0.70-1.30); EST Glomerular Filtration Rate 59 mL/min (>60); Est Glom Filt Rate - Afr Amer 71 mL/min (>60); Glucose 103 mg/dL (74-106); Potassium 3.8 mmol/L (3.5-5.1); Sodium Level 140 mmol/L (136-145); Troponin-I HS 8 pg/mL (3.0-78.0)
[2022-11-06 16:29] VITALS: BP 163/81
[2022-11-06 17:04] VITALS: BP 148/92; PULSE 60; RESP 16; O2SAT 95
== END 2022-11-06 17:06 | disposition home or self-care (01) ==
PROVIDERS: Emergency Provider Emergency Medicine; PCP Family Medicine; Visit Provider Emergency Medicine
DX: M54.50 Low back pain, unspecified (principal); M79.604 Pain in right leg; I10 Essential (primary) hypertension; Z79.52 Long term (current) use of systemic steroids
CPT/HCPCS: 72040; 72100; 80048; 84484; 85025; 93005; 99282

== ENCOUNTER → 2022-11-24 | Outpatient (CLI) | payer MEDICARE, SELFPAY ==
--- NOTE | 2022-11-24 06:37 | MRI_ITS ---
STUDY: MRI LUMBAR SPINE WITHOUT CONTRAST REASON FOR EXAM: Male, 67 years old. RT RADICULOPATHY HX prior surgery 34 years ago TECHNIQUE: Standardized fat and water weighted pulse sequences were obtained in the sagittal and axial planes. COMPARISON: X-ray of the lumbar spine dated November 06, 2022. FINDINGS: Normal lumbar lordosis. There is no substantial scoliosis. Normal conus medullaris that terminates at the T12-L1 level. No marrow edema or fracture or compression deformity is present. T12-L1: Normal endplates. Normal disc height, hydration and morphology. Normal bilateral facet joints. Normal central canal and bilateral lateral recesses. Normal bilateral intervertebral neural foramina. L1-2: Normal endplates. Normal disc height, hydration and morphology. Normal bilateral facet joints. Normal central canal and bilateral lateral recesses. Normal bilateral intervertebral neural foramina. L2-3: Moderate disc space narrowing with the midline to left paracentral disc protrusion osteophyte complex causing left lateral recess stenosis without nerve root compression. Mild central canal stenosis. Mild facet joint hypertrophy. L3-4: Diffuse disc desiccation with moderate disc space narrowing resulting in posterior annular bulging. Mild facet joint and ligamenta flava hypertrophy contributes to mild central canal stenosis. Mild bilateral foraminal stenosis. L4-5: Diffuse disc desiccation with moderate disc space narrowing. Anterolisthesis of L4 and L5 of 3 mm with uncovering of the disc. Mild posterior annular bulging of the disc and superimposed right paracentral disc protrusion causing right lateral recess stenosis with nerve root compression. Mild central canal stenosis. Mild to moderate facet joint hypertrophy. Moderate right foraminal stenosis with nerve root compression. Normal left neural foramen. L5-S1: Severe disc space narrowing. Moderate-sized anterior bridging osteophytes. No posterior disc herniation or bulging. Normal bilateral facet joints. Normal central canal and bilateral lateral recesses. Normal bilateral intervertebral neural foramina. Normal visualized sacral ala. Normal visualized paraspinous soft tissue structures. MRI/Spine Lumbar (Routine) IMPRESSION: 1. Multilevel degenerative changes, as described above. 2. Right paracentral disc protrusion at L4-L5 causing lateral recess stenosis with nerve root compression and mild central canal stenosis 3. Moderate right foraminal stenosis with nerve root compression at L4-L5 4. Midline to left paracentral disc protrusion osteophyte complex at L2-L3 Electronically Signed: Lc Ovalle MD at 9:54 EDT ,
== END | disposition home or self-care (01) ==
PROVIDERS: PCP Family Medicine; Referring Provider Family Medicine; Visit Provider Family Medicine
DX: M54.17 Radiculopathy, lumbosacral region (principal)
CPT/HCPCS: 72148

== ENCOUNTER → 2023-01-02 | Outpatient (CLI) | payer MEDICARE, SELFPAY ==
--- NOTE | 2023-01-02 07:31 | MRI_ITS ---
STUDY: MRI CERVICAL SPINE WITHOUT CONTRAST REASON FOR EXAM: Male, 67 years old. CERVICAL DISC DISORDER TECHNIQUE: Standardized fat and water weighted pulse sequences were obtained in the sagittal and axial planes. COMPARISON: Cervical spine radiographs 11/06/2022. FINDINGS: Normal foramen magnum and brainstem-cervical cord junction. Normal craniovertebral junction. Normal anterior atlantoaxial articulation. Normal odontoid process. Mild cervical kyphosis. Normal vertebral bodies and posterior osseous elements. C2-3: Normal endplates. Mild disc space height narrowing. Normal central canal and intervertebral neural foramina. C3-4: Normal endplates. Partial ankylosis of the vertebral bodies. Hypoplastic disc. Partial ankylosis of the right facet joint with degenerative facet arthropathy. Normal left facet joint. Normal intervertebral neural foramina. C4-5: Normal endplates. Mild disc space height narrowing. Mild degenerative anterolisthesis of C4 on C5. Normal central canal and intervertebral neural foramina. C5-6: Normal endplates. Mild disc space height narrowing. Normal central canal and intervertebral neural foramina. C6-7: Normal endplates. Moderate disc space height narrowing. Normal central canal and right intervertebral neural foramen. Moderate stenosis of the left intervertebral neural foramen. C7-T1: Normal endplates. Pronounced disc space height narrowing. Mild ventral extradural defect due to posterior marginal spurs. Normal central canal and left intervertebral neural foramen. Mild stenosis of the right intervertebral neural foramen. T1-T2, T2-T3 and T3-T4: (Sagittal only). Normal endplates. Normal disc height and morphology. Normal central canal and intervertebral neural foramina. Normal cervical cord. Normal included upper thoracic spinal cord, brainstem and cerebellum. Normal visualized soft tissue structures. MRI/Spine Cervical (Routine) IMPRESSION: 1. No MRI evidence of cervical extruded disc fragment or disc protrusion. 2. Partial ankylosis of the C3 and C4 vertebral bodies and partial ankylosis of the right C3-C4 facet joint. 3. Mild degenerative anterolisthesis of C4 on C5. 4. Moderate stenosis of the left C6-C7 intervertebral neural foramen and moderate C6-C7 disc space height narrowing. 5. Mild stenosis of the right C7-T1 intervertebral neural foramen, pronounced C7 disc space height narrowing and small posterior marginal spurs. 6. Normal thoracic spinal cord. Electronically Signed: Jairo Valdes MD at 16:23 EDT ,
== END | disposition home or self-care (01) ==
LOC: MRI 07:26
PROVIDERS: PCP Family Medicine; Referring Provider Orthopaedic Surgery Orthopaedic Surgery of the Spine; Visit Provider Orthopaedic Surgery Orthopaedic Surgery of the Spine
DX: M54.16 Radiculopathy, lumbar region (principal); M50.020 Cervical disc disorder with myelopathy, mid-cervical region, unspecified level; M48.062 Spinal stenosis, lumbar region with neurogenic claudication; M43.16 Spondylolisthesis, lumbar region
CPT/HCPCS: 72141

== ENCOUNTER 2023-03-08 15:01 | Emergency (ER) | payer MEDICARE, SELFPAY ==
[2023-03-08 15:03] VITALS: BP 133/84; PULSE 97; RESP 18; TEMP 36.6; O2SAT 98; BMI 26.6
--- NOTE | 2023-03-08 15:52 | EKG12_ITS ---
Test Reason : CP/COUGH Blood Pressure : / mmHG Vent. Rate : 075 BPM Atrial Rate : 075 BPM P-R Int : 142 ms QRS Dur : 098 ms QT Int : 380 ms P-R-T Axes : 049 003 052 degrees QTc Int : 424 ms Normal sinus rhythm Incomplete right bundle branch block Borderline ECG Confirmed by OCTAVIANO HARTLEY, INNA ([id number]), mapping editor NICKY ARTEAGA ([id number]) on 03/09/2023 9:04:46 AM Referred By: SHANNAN Confirmed By:INNA BRUMIFELD MD
--- NOTE | 2023-03-08 15:52 | CT_ITS ---
STUDY: CTA CHEST REASON FOR EXAM: Male, 67 years old. chest pain RADIATION DOSAGE (If Supplied By Facility): CTDIvol = ( 11.00 ) mGy, DLP = ( 410.59 ) mGycm TECHNIQUE: The examination was performed with the intravenous administration of IV 100mL Isovue-370. Post-processing of the angiographic images was performed, with multiplanar reformation and 3D reconstruction. Individualized dose optimization techniques were used for this CT. COMPARISON: AP portable March 08, 2023 FINDINGS: Normal enhancement of the main pulmonary artery and right and left pulmonary arteries. Normal enhancement of the bilateral peripheral pulmonary arteries. There is no demonstrated pulmonary embolism. Normal thoracic aorta and visualized great vessels. There is no demonstrated aortic dissection. Heart size is normal. There is mild coronary artery calcification Normal mediastinum. Normal hilar regions. Normal visualized trachea and bronchi. The lungs are well expanded. Minor atelectasis within the dependent portion of both the upper and lower lobes. No focal infiltration or pulmonary nodule Normal pleura. Normal chest wall structures. Dorsal spine demonstrates degenerative change Liver demonstrates mild fatty infiltration. Bilateral nonobstructing renal calculi and cysts CT/CTA Chest W/WO Contrast IMPRESSION: ASHD and minor atelectasis within the dependent portion of both upper and lower lobes.. No acute abnormality. No evidence for pulmonary embolus Electronically Signed: Manjeet Carrera MD at 17:35 EDT ,
--- NOTE | 2023-03-08 15:54 | EDS_ITS ---
HPI History of Present Illness Chief Complaint: General Illness Narrative Narrative: Patient presenting with chest pain. He states been present for 3 days. He also feels like he is short of breath. Patient had recent lumbar surgery in [facility] for herniated disc. He has been recovering. He reports that prior to this he could walk a half a mile at a time. He states today he can only walk about 200 feet without getting short of breath and having to stop. He feels like he has to cough but is scared to cough because of his back brace. He has not had a fever. No chills. He does have a cardiac history. No history of DVT/PE. Patient also has complained about rash on his face since his surgery on January 15. It is coming down several times. He is tried several different oils and creams. It does not hurt. He mentions that it started to itch about 3 weeks ago. He has not seen anybody for this yet. 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 Constitutional Constitutional ED: Denies chills, fever(s) or sweats Eyes Eyes: Denies blurry vision or change in vision ENT ENT ED: Denies ear pain or sore throat Cardiovascular Cardiovascular: Reports chest pain; Denies palpitations or racing heartbeat Respiratory/Chest Respiratory/Chest: Reports cough, dyspnea and dyspnea on exertion; Denies sputum Gastrointestinal Gastrointestinal: Denies abdominal pain, constipation, diarrhea, nausea or vomiting Genitourinary Genitourinary ED: Denies dysuria, hematuria or urinary frequency Musculoskeletal Musculoskeletal: Denies arthralgias, myalgias or neck pain Integumentary Reports rash; Denies abscess or Abrasions Neurologic Neurologic: Denies headache(s), paresthesias or weakness Psychiatric Psychiatric: Denies anxiety, depression, suicidal ideation or suicidal thoughts Endocrine Endocrinology: Denies polydipsia or polyuria EXAM Physical Exam Const Vital Signs: 03/08/23 15:03 03/08/23 15:11 03/08/23 16:23 Temperature 98 F Temperature Source Temporal Pulse Rate 97 Respiratory Rate 18 Respiratory Effort Normal Non-Labored Respiratory Pattern Normal Blood Pressure 133/84 H Blood Pressure Mean 100 Pulse Ox 98 Oxygen Delivery Method Room Air Room Air Positive well nourished General Appearance ED: NAD; Negative for pallor HEENT Reports moist mucous membranes Eyes PERRL and EOMs intact bilaterally Chest Wall inspection of chest normal and palpation of chest normal Resp normal respiratory effort and clear to auscultation bilaterally Auscultation: Negative for rales, rhonchi or wheezes Cardio regular rate and regular rhythm GI normal to inspection, nondistended, normoactive bowel sounds Neuro oriented x3 and CN's II-XII intact bilaterally Sensorium / Orientation: alert Psych mental status grossly normal Skin Skin Narrative: Dry scaling rash within the lemons line on his face mostly within the nasolabial folds. No increased warmth. General Skin Exam: Negative for jaundice or pallor MDM MDM MDM Narrative Medical decision making narrative: 67-year-old male presenting with chest pain differential includes but is not limited to ACS, PE, pneumonia, muscle strain, costochondritis, CHF. He is not having ripping and tearing pain to suggest dissection. He has equal symmetric breath sounds bilaterally and no tracheal deviation so infection is unlikely. CBC to assess white blood cell count, hemoglobin, platelets, differential. BMP to assess renal function, electrolytes, glucose, anion gap. High-sensitivity troponin and EKG to assess for ischemia. Chest x-ray to rule out pneumonia. As far as patient's rash does not appear to be cellulitic. I am going to refer him to dermatology for this. CBC shows no significant leukocytosis with a white blood cell count of 7.0. Hemoglobin stable at 11.8. Platelets are normal. Renal function and electrolytes unremarkable. High-sensitivity troponin initially 5. BNP 21.6. EKG normal sinus rhythm with a ventricular rate of 75 bpm without sign of ischemic change or ectopy on my interpretation. Right bundle branch block noted. Chest x-ray my interpretation shows no acute cardiopulmonary process. The radiologist interprets this and agrees. Because the patient's short of breath with chest pain and his postoperative I did obtain a CTA of the chest which was negative for PE or dissection. At this point the patient has a negative work-up. I recommended that he follow-up with his PCP and his general surgeon. I also gave him a referral for dermatology for the facial rash. I do not believe it is infectious and does not need antibiotics. Impression: 1. Chest pain 2. Dyspnea 3. Atopic dermatitis Lab Data Attestation: I reviewed the patient's lab results. Labs: Laboratory Results - last 24 hr 03/08/23 03/08/23 03/08/23 16:20 16:20 16:20 WBC 7.0 RBC 4.17 L Hgb 11.8 L Hct 37.3 L MCV 89.4 MCH 28.3 MCHC 31.6 L RDW Std Deviation 45.5 H RDW Coeff of Colt 13.9 Plt Count 307 MPV 9.7 Immature Gran % (Auto) 0.400 Neut % (Auto) 71.3 H Lymph % (Auto) 14.2 L [place] % (Auto) 11.2 H Eos % (Auto) 2.3 Baso % (Auto) 0.6 Absolute Neuts (auto) 5.0 Absolute Lymphs (auto) 0.99 Nucleated RBC % 0 Sodium 135 L Potassium 4.1 Chloride 101 Carbon Dioxide 30.0 Anion Gap 4 L BUN 24 H Creatinine 1.25 Estim Creat Clear Calc 57.59 Est GFR (MDRD) Af Amer 74 Est GFR (MDRD) Non-Af 61 BUN/Creatinine Ratio 19.2 Glucose 114 H Calcium 9.7 Troponin I High Sens 5 B-Natriuretic Peptide 21.6 03/08/23 18:35 WBC RBC Hgb Hct MCV MCH MCHC RDW Std Deviation RDW Coeff of Colt Plt Count MPV Immature Gran % (Auto) Neut % (Auto) Lymph % (Auto) [place] % (Auto) Eos % (Auto) Baso % (Auto) Absolute Neuts (auto) Absolute Lymphs (auto) Nucleated RBC % Sodium Potassium Chloride Carbon Dioxide Anion Gap BUN Creatinine Estim Creat Clear Calc Est GFR (MDRD) Af Amer Est GFR (MDRD) Non-Af BUN/Creatinine Ratio Glucose Calcium Troponin I High Sens 5 B-Natriuretic Peptide Radiography Diagnostic Testing: Clinical Impression(s) from Imaging Studies Chest CTA 03/08/23 15:52 IMPRESSION: ASHD and minor atelectasis within the dependent portion of both upper and lower lobes.. No acute abnormality. No evidence for pulmonary embolus Electronically Signed: Manjeet Carrera MD at 17:35 EDT , Chest X-Ray 03/08/23 17:17 IMPRESSION: No acute cardiopulmonary pathology Electronically Signed: Manjeet Carrera MD at 17:31 EDT , Discharge Plan Triage Chief Complaint: General Illness ED Provider: Osiel Ortega Dx/Rx/DC Orders Instructions: ED Atopic Dermatitis (Adult), ED Chest Pain, Uncertain Cause Prescriptions: No Action NK Primary Care Provider: Carlos Carrera Referrals: Carlos Carrera DO [Primary Care Provider] - Rony Porras MD [Med Staff - [facility] Administrator] - 3-5 Days Disposition Disposition: Home, Self Care
[2023-03-08] MEDS: Aspirin 81 MG TAB.CHEW 324 MG PO (16:20)
[2023-03-08 16:37] LABS: Absolute Lymphocyte Count 0.99 X10^3/uL (0.83-4.51); Basophil# 0.04 X10^3/uL; Basophil% 0.6 % (0-1); Eosinophil# 0.16 X10^3/uL; Eosinophils% 2.3 % (0-5); Hematocrit 37.3 % (40-54); Hemoglobin 11.8 g/dL (13.0-16.5); Lymphocyte # 0.99 X10^3/ul (0.83-4.51); Lymphocyte % 14.2 % (19-41); Mean Corp Hgb Conc 31.6 g/dL (32-36); Mean Corpuscular Hgb 28.3 pg (27.0-32.0); Mean Corpuscular Volume 89.4 fL (80-94); Mean Platelet Vol. 9.7 fl (6.2-12.0); Monocyte# 0.78 X10^3/uL; Monocyte% 11.2 % (0-10); NRBC Flagged by Analyzer 0 % (0-5); Neutrophil # 4.97 X10^3/uL (2.7-7.7); Neutrophil % 71.3 % (47-70); Platelet Count 307 K/mm3 (150-450); RBC Distribution Width CV 13.9 % (11.6-14.6); RBC Distribution Width SD 45.5 fl (35.1-43.9); Red Blood Count 4.17 M/mm3 (4.6-6.2)
[2023-03-08 17:03] LABS: Anion Gap 4 (5-15); BUN 24 mg/dL (7-18); BUN/Creat Ratio 19.2 RATIO (10-20); Calcium,Total 9.7 mg/dL (8.5-10.1); Chloride 101 mmol/L (98-107); Creatinine, Serum 1.25 mg/dL (0.70-1.30); EST Glomerular Filtration Rate 61 mL/min (>60); Est Glom Filt Rate - Afr Amer 74 mL/min (>60); Estimated Creatinine Clearance 57.59 ml/min; Glucose 114 mg/dL (74-106); Potassium 4.1 mmol/L (3.5-5.1); Sodium Level 135 mmol/L (136-145); Troponin-I HS (w/2H Reflex) 5 pg/mL (3.0-78.0)
[2023-03-08 17:06] LABS: BNP,B-Type NATRIURETIC PEPTIDE 21.6 pg/mL (0-100)
--- NOTE | 2023-03-08 17:17 | RAD_ITS ---
STUDY: X-RAY CHEST REASON FOR EXAM: Male, 67 years old. chest pain TECHNIQUE: COMPARISON: None. FINDINGS: The lungs are clear and expanded. There is no demonstrated pleural abnormality. Normal size heart. Normal mediastinum and heron. Normal visualized pulmonary arteries. Mild calcification of the aortic arch and descending thoracic aorta. Dorsal spine demonstrates degenerative change. Normal visualized ribs, clavicles, and shoulders. There is no demonstrated abnormality of the visualized soft tissue structures of the upper abdomen. RAD/Chest 1 View (Portable) IMPRESSION: No acute cardiopulmonary pathology Electronically Signed: Manjeet Carrera MD at 17:31 EDT ,
[2023-03-08 18:24] LABS: Reflex Troponin-HS? (from REC) Y
[2023-03-08 18:59] LABS: Troponin-I HS 5 pg/mL (3.0-78.0)
[2023-03-08 19:44] VITALS: PULSE 86
== END 2023-03-08 19:47 | disposition home or self-care (01) ==
PROVIDERS: Emergency Provider Student in an Organized Health Care Education/Training Program; PCP Family Medicine; Visit Provider Student in an Organized Health Care Education/Training Program
DX: R07.9 Chest pain, unspecified (principal); L20.9 Atopic dermatitis, unspecified; R06.00 Dyspnea, unspecified; Z98.890 Other specified postprocedural states
CPT/HCPCS: 71045; 71275; 80048; 83880; 84484; 85025; 93005; 99283; Q9967; A4216

== ENCOUNTER → 2023-08-02 | Outpatient (CLI) | payer MEDICARE, SELFPAY ==
--- NOTE | 2023-08-02 07:55 | ADUUE_ITS ---
Reason For Study: ASYMMETRIC BLOOD PRESSURE LEFT Left Subclavian velocity = 155.5 cm/sec. Left Axillary velocity = 61.0 cm/sec. Left Brachial velocity = 139.39 cm/sec. Left Radial velocity = 118.0 cm/sec. Left Ulnar velocity = 110.2 cm/sec. /US Art Duplex Unilat UP Extrem Interpretation Summary Left upper extremity arteries patent with doubling of velocity from axillary to brachial signifying >50% stenosis Ordering Physician: Carlos Carrera Referring Physician: Carlos Carrera Performed By: Karina Bryant, NEYMAR, RVT
== END | disposition home or self-care (01) ==
PROVIDERS: PCP Family Medicine; Referring Provider Family Medicine; Visit Provider Family Medicine
DX: I99.8 Other disorder of circulatory system (principal); I79.8 Other disorders of arteries, arterioles and capillaries in diseases classified elsewhere
CPT/HCPCS: 93931

== ENCOUNTER 2023-10-11 11:04 | Emergency (ER) | payer MEDICARE, SELFPAY ==
[2023-10-11 11:05] VITALS: BP 152/98; PULSE 68; RESP 16; TEMP 36.2; O2SAT 100; BMI 28.7
--- NOTE | 2023-10-11 11:36 | EDS_ITS ---
HPI History of Present Illness Chief Complaint: Complaint Informant: patient Narrative Narrative: Presents with dysuria and urinary urgency. Not fully emptying his urine since Wednesday, 2 days ago. History of prostate issues had had surgical intervention by Dr. Chin 5 years ago. Since then no issues until 2 days ago. No fevers. No flank pain. No nausea or vomiting. He tried calling his urologist however they would not see him due to him not being a patient for years. Prior similar symptoms: Yes PFSH PFSH Medical History Bladder stones Hypertension Home Medications calcium citrate 1,000 mg tablet 1,000 mg PO DAILY 08/24/23 [History Last Taken Unknown] losartan 25 mg tablet 25 mg PO BID 08/24/23 [History Last Taken Unknown] cefdinir 300 mg capsule 300 mg PO Q12H #14 caps 10/11/23 [Rx Last Taken Unknown] Allergy/AdvReac Type Severity Reaction Status Date / Time No Known Allergies Allergy Verified 10/11/23 11:07 Family History Other Heart disease Surgical History History of lumbar surgery (~01/2023) Previous back surgery (~1986) Social History Smoking Status: Never smoker alcohol intake: current Alcohol type: beer substance use type: does not use what type of 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 Constitutional Constitutional ED: Denies chills, fever(s) or sweats Eyes Eyes: Denies change in vision ENT ENT ED: Denies dysphagia or sore throat Cardiovascular Cardiovascular: Denies chest pain, leg edema, palpitations or racing heartbeat Respiratory/Chest Respiratory/Chest: Denies cough, dyspnea or dyspnea on exertion Gastrointestinal Gastrointestinal: Denies abdominal pain, diarrhea, nausea or vomiting Genitourinary Genitourinary ED: Reports dysuria; Denies hematuria or urinary frequency Musculoskeletal Musculoskeletal: Denies back pain, extremity pain or neck pain Integumentary Denies rash or wounds Neurologic Neurologic: Denies headache(s), paresthesias or weakness EXAM Physical Exam Const Vital Signs: 10/11/23 11:05 10/11/23 13:59 Temperature 97.1 F L Temperature Source Temporal Pulse Rate 68 81 Respiratory Rate 16 16 Blood Pressure 152/98 H 128/78 H Blood Pressure Mean 116 94 Pulse Ox 100 98 Oxygen Delivery Method Room Air Positive well nourished and well developed Constitutional Narrative: Nontoxic General Appearance ED: well developed and NAD HEENT Reports moist mucous membranes normocephalic and atraumatic Eyes PERRL, EOMs intact bilaterally and conjunctivae normal General Eye ED: Yes normal appearance of both eyes Neck no lymphadenopathy and supple General: Negative for tenderness Chest Wall Chest: Negative for tenderness Resp normal respiratory effort and normal air movement Effort and Inspection: symmetric chest movement; Negative for respiratory distress Cardio regular rate, regular rhythm and no murmurs Peripheral Pulses: pulses 2+ throughout GI normal to inspection, nondistended, normoactive bowel sounds and non-tender Palpation: Negative for guarding or rebound tenderness present no CVA tenderness Back/Spine no CVA tenderness and no thoracic nor lumbar tenderness Back/Spine Narrative: Midline lower lumbar scar Extremity normal to inspection General Extremety ED: Negative for edema or tenderness General Extremity: Negative for edema Neuro oriented x3 and no sensory deficits noted Sensorium / Orientation: awake and alert Skin no rashes or lesions noted and no wounds MDM MDM MDM Narrative Medical decision making narrative: Interventions / MDM: Differential diagnosis: Urinary tract infection, history of BPH Diagnosis considered but do not suspect: Urinary retention however postvoid residual 93 mL, no clinical pyelonephritis My EKG interpretation: N/A Imaging independently reviewed and interpreted by myself: N/A External documents reviewed: N/A Test considered but not ordered:N/A ED course: Patient nontoxic reports dysuria 2 days no fevers no flank pain. Postvoid residual 93 cc. Urine leukocytes no other findings. Urine culture sent. He is symptomatic. Will start antibiotics for complicated UTI as he is a male. Return precaution discussed with the patient. All questions were answered. Re-evaluation: stable Disposition discussed with patient/family/significant other: Patient Case discussed with consulting clinician: N/A This note was generated with [employer] dictation software. It may contain incorrect words, spelling, and punctuation that were not noted in checking the note before signing. Lab Data Attestation: I reviewed the patient's lab results. Labs: Laboratory Results - last 24 hr 10/11/23 12:45 Urine Color Yellow Urine Clarity Clear Urine pH 6.0 Ur Specific [place] 1.015 Urine Protein 15 H Urine Glucose (UA) Normal Urine Ketones 5 H Urine Occult Blood 150 H Urine Nitrite Negative Urine Bilirubin Negative Urine Urobilinogen Normal Ur Leukocyte Esterase 25 H Urine RBC 5-10 SEEN Urine WBC 0-5 SEEN Ur Squamous Epith Cells 0 SEEN Urine Bacteria 0 SEEN Urine Mucus 0 SEEN Discharge Plan Triage Chief Complaint: Complaint ED Provider: Yfn Hall Dx/Rx/DC Orders Clinical Impression: Complicated urinary tract infection, Dysuria Instructions: ED Urinary Tract Infections in Men Prescriptions: New cefdinir 300 mg capsule 300 mg PO Q12H Qty: 14 0RF No Action calcium citrate 1,000 mg tablet 1,000 mg PO DAILY losartan 25 mg tablet 25 mg PO BID Primary Care Provider: Carlos Carrera Referrals: Shubham Chin MD [Med Staff - Active Staff] - 1-2 Weeks Carlos Carrera DO [Primary Care Provider] - 1 Week Activity Restrictions/Additional Instructions: Urine mild infection with culture sent. You are symptomatic. Your post void residual was 93 mL. Take and finish antibiotic as prescribed. If you develop fevers back pain vomiting, return to the ED for reevaluation otherwise follow-up with your doctors. Disposition Disposition: Home, Self Care Discharge Date/Time: 10/11/23 14:00
[2023-10-11 12:50] LABS: Bacteria 0 SEEN /hpf (None Seen); Mucous, Urine 0 SEEN /hpf (<or=2+); Squamous Epithelial Cells - UA 0 SEEN /hpf (0-5)
[2023-10-11 13:11] LABS: Color, Urine Yellow (Yellow); Glucose, Dipstick Normal (Normal); Ketone-Dipstick 5 mg/dl (Negative); Leukocyte Esterase-Dipstick 25 /ul (Negative); Nitrite-Dipstick Negative (Negative); Occult Blood-Urine 150 /ul (Negative); Protein-Dipstick 15 mg/dl (Negative); Specific Gravity, Urine 1.015 (1.002-1.030); Urine Bilirubin Dipstick Negative (Negative); Urine Clarity Clear (Clear); Urine Urobilinogen Normal (Normal)
[2023-10-11 13:12] LABS: Red Blood Cells-Urine 5-10 SEEN /hpf (0-5); White Blood Cells 0-5 SEEN /hpf (0-5)
[2023-10-11] MEDS: Cefdinir 300 MG Capsule PO (13:50)
[2023-10-11 13:59] VITALS: BP 128/78; PULSE 81; RESP 16; O2SAT 98
== END 2023-10-11 14:00 | disposition home or self-care (01) ==
PROVIDERS: Emergency Provider Emergency Medicine; PCP Family Medicine; Visit Provider Emergency Medicine
DX: N39.0 Urinary tract infection, site not specified (principal); I10 Essential (primary) hypertension; Z79.899 Other long term (current) drug therapy
CPT/HCPCS: 81001; 87086; 87088; 99282

== ENCOUNTER → 2023-10-26 | Outpatient (CLI) | payer MEDICARE, SELFPAY | END | disposition home or self-care (01) | LOC: LABSPEC 16:54 | PROVIDERS: PCP Family Medicine; Referring Provider Urology; Visit Provider Urology | DX: N40.1 Benign prostatic hyperplasia with lower urinary tract symptoms (principal) | CPT/HCPCS: 87086 ==

== ENCOUNTER → 2024-02-03 | Outpatient (CLI) | payer MEDICARE, SELFPAY ==
--- NOTE | 2024-02-03 13:41 | RAD_ITS ---
ACR Level 3 findings have been noted. An addendum which confirms receipt of the report will follow. STUDY: X-RAY CHEST REASON FOR EXAM: Male, 68 years old. COUGH TECHNIQUE: PA and lateral views of the chest. COMPARISON: March 08, 2023 FINDINGS: Moderate consolidation is present in the right lower lobe. The remaining lung yip are clear. Chronic interstitial scarring is seen in the left lung base. Hyperinflated lungs with cystic emphysematous changes. There is no demonstrated pleural abnormality. Normal size heart. Normal mediastinum and heron. Normal visualized pulmonary arteries. There is atherosclerotic calcification of the aortic arch with tortuosity. There are diffuse degenerative changes of the visualized thoracic spine. There is degenerative osteoarthritis of the bilateral shoulders. There is no demonstrated abnormality of the visualized soft tissue structures of the upper abdomen. RAD/Chest PA and Lateral IMPRESSION: 1. Moderate right lower lobe pneumonic consolidation Electronically Signed: Lc Ovalle MD at 14:37 EDT ,
[2024-02-03 15:30] LABS: Absolute Neutrophil Count 8.7 X10^3/uL (2.0-7.7); Basophil# 0.03 X10^3/uL; Basophil% 0.3 % (0-1); Hemoglobin 13.2 g/dL (13.0-16.5); Mean Corp Hgb Conc 32.2 g/dL (32-36); Mean Corpuscular Hgb 28.8 pg (27.0-32.0); Mean Corpuscular Volume 89.3 fL (80-94); Mean Platelet Vol. 11.5 fl (6.2-12.0); Monocyte# 0.51 X10^3/uL; Monocyte% 5.1 % (0-10); NRBC Flagged by Analyzer 0 % (0-5); Neutrophil # 8.71 X10^3/uL (2.7-7.7); Neutrophil % 87.3 % (47-70); Platelet Count 159 K/mm3 (150-450); RBC Distribution Width CV 14.1 % (11.6-14.6); Red Blood Count 4.59 M/mm3 (4.6-6.2)
[2024-02-03 16:01] LABS: ALB/GLOB Ratio 0.7 RATIO (0.9-2.4); AST(SGOT) 30 U/L (15-37); Alanine Aminotransfer ALT/SGPT 30 U/L (16-61); Albumin, Serum 3.2 g/dL (3.2-5.0); Alkaline Phosphatase 83 U/L (45-117); Anion Gap 11 (5-15); BUN 26 mg/dL (7-18); BUN/Creat Ratio 16.6 RATIO (10-20); Calcium,Total 8.7 mg/dL (8.5-10.1); Chloride 98 mmol/L (98-107); Creatinine, Serum 1.57 mg/dL (0.70-1.30); EST Glomerular Filtration Rate 47 mL/min (>60); Est Glom Filt Rate - Afr Amer 56 mL/min (>60); Globulin 4.5 g/dL (2.2-4.2); Glucose 129 mg/dL (74-106); Protein, Total 7.7 g/dL (6.4-8.2); Sodium Level 132 mmol/L (136-145)
== END | disposition home or self-care (01) ==
PROVIDERS: PCP Family Medicine; Referring Provider Family Medicine; Visit Provider Family Medicine
DX: R50.9 Fever, unspecified (principal); R05.9 Cough, unspecified
CPT/HCPCS: 36415; 71046; 80053; 85025

== ENCOUNTER 2024-02-08 00:24 | Emergency (ER) | payer MEDICARE, SELFPAY ==
[2024-02-08 00:25] VITALS: BP 137/79; PULSE 68; RESP 12; TEMP 36.9; O2SAT 98; BMI 26.7
--- NOTE | 2024-02-08 00:29 | RAD_ITS ---
INDICATION: constipation EXAMINATION/TECHNIQUE: X-RAY - Supine AP view. COMPARISON: 02/03/2024 chest x-ray. FINDINGS: BOWEL GAS PATTERN: Unremarkable. Large amount of stool retention. CALCIFICATIONS: No abnormal calcifications identified. LOWER CHEST: Right basilar atelectasis versus infiltrate. BONES AND SOFT TISSUES: No acute abnormality. RAD/Abdomen Single View IMPRESSION: 1. No evidence of an acute intra-abdominal abnormality. 2. Large amount of stool retention. 3. Right basilar infiltrate versus atelectasis. Electronically Signed: Manjeet Dupree DO at 1:17 EDT ,
--- NOTE | 2024-02-08 00:36 | EDS_ITS ---
HPI HPI - GI History of Present Illness Chief Complaint: Constipation Informant: patient Abdominal Pain/Flank Pain Onset: Days Context: Gradual Onset Timing: Continuous Current Severity: Mild Maximum Severity: Mild Nausea/Vomiting/Emesis GI Symptom: Negative for Nausea or Vomiting Diarrhea/Melena/Hematochezia GI Symptom: Positive for Diarrhea; Negative for Melena Stool Quality: Positive for Loose Severity: Mild Associated Symptoms Associated Symptoms: Negative for Dysuria, Frequency, Hematuria or Urgency Narrative Narrative: 68-year-old male last was diagnosed with pneumonia on chest x-ray. Was started on antibiotic 1 pill a day. He said prior to even starting antibiotic he had some diarrhea on a little bit on Wednesday. Since then he has not had a bowel movement. Really denies abdominal pain. Today while straining no bowel he said there was a's very small amount of blood in the toilet. He has had hemorrhoids before. He is on no blood thinners. He denies any black or melanotic stool. Denies any abdominal pain. No vomiting or nausea. Prior similar symptoms: Yes Recent Illness/Hospitalization: No PFSH PFSH Medical History BPH (benign prostatic hyperplasia) Hypertension Bladder stones Home Medications ?Medication ?Instructions ?Recorded ?Last Taken ?Type calcium citrate 1,000 mg tablet 1,000 mg PO DAILY 08/24/23 Unknown History losartan 25 mg tablet 25 mg PO BID 08/24/23 Unknown History Allergy/AdvReac Type Severity Reaction Status Date / Time No Known Allergies Allergy Verified 02/08/24 00:32 Family History Other Heart disease Surgical History History of lumbar surgery (~01/2023) Previous back surgery (~1986) Social History Smoking Status: Never smoker alcohol intake: current Alcohol type: beer substance use type: does not use what type of 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 Review of Systems ROS Unobtainable: Denies due to encephalopathy Constitutional Constitutional ED: Denies chills or fever(s) ENT ENT ED: Denies ear pain Cardiovascular Cardiovascular: Denies chest pain Respiratory/Chest Respiratory/Chest: Denies cough or dyspnea Gastrointestinal Gastrointestinal: Reports constipation and diarrhea; Denies abdominal pain, melena, nausea or vomiting Genitourinary Genitourinary ED: Denies dysuria or hematuria Musculoskeletal Musculoskeletal: Denies arthralgias Integumentary Denies abscess or Abrasions Neurologic Neurologic: Denies headache(s) Psychiatric Psychiatric: Denies anxiety Endocrine Endocrinology: Denies polydipsia Hematologic/Lymphatic Hematologic/Lymphatic: Denies easy bleeding or lymphadenopathy Allergic/Immunologic Allergic/Immunologic ED: Denies mouth swelling, tongue swelling or urticaria EXAM Physical Exam Narrative Exam Narrative: 68-year-old male no acute distress. Vital signs stable afebrile. H EENT exam unremarkable. Neck nontender no lymphadenopathy. Lungs clear to auscultation bilaterally. Heart regular rhythm no murmur. Chest wall and ribs nontender. Abdomen soft nontender. Nondistended. No hernia or mass. No obstruction. Positive bowel sounds. No peritoneal signs. Moving all 4 extremities. Nontender. No edema. Neurologically is awake alert no focal motor deficits. Rectal exam is a lot of stool at his anus. Currently there is no gross blood. No clots. No black stool. Due to his discomfort I did not do a rectal exam. Const Vital Signs: 02/08/24 00:25 Temperature 98.5 F Temperature Source Temporal Pulse Rate 68 Respiratory Rate 12 Blood Pressure 137/79 H Blood Pressure Mean 98 Pulse Ox 98 Oxygen Delivery Method Room Air Positive well nourished and well developed; Negative for obese, cachectic, contractures or unkempt General Appearance ED: well developed and NAD; Negative for unkempt, cachectic, contractures or pallor Nutritional Appearance: Negative for cachectic or obese HEENT Reports moist mucous membranes normocephalic and atraumatic; Negative for trauma or tenderness Eyes PERRL and EOMs intact bilaterally General Eye ED: Negative for pale conjunctiva or scleral icterus Neck no lymphadenopathy, supple and no JVD General: Negative for tenderness Lymph Lymphatic: Negative for other Resp normal respiratory effort and clear to auscultation bilaterally Auscultation: Negative for rales, rhonchi or wheezes Cardio regular rate, regular rhythm, S1 normal heart sound, S2 normal heart sound and no murmurs Rate: Negative for bradycardia or tachycardic Rhythm: Negative for abnormal rhythm GI non-tender, non-distended and no masses Inspection: Negative for abdominal distention Auscultation: normoactive bowel sounds Palpation: soft; Negative for tender, guarding, pulsatile mass or rebound tenderness present Back/Spine no CVA tenderness General Back: Negative for CVA tenderness Cervical Spine: Negative for cervical spine tenderness Thoracic Spine / Upper Back: Negative for thoracic spinal tenderness Lumbar Spine / Lower Back: Negative for lumbar spinal tenderness Extremity full ROM General Extremety ED: Negative for edema or tenderness General Extremity: Negative for edema Neuro CN's II-XII intact bilaterally and moves all extremities Sensorium / Orientation: alert, oriented to person, oriented to place and orien yariel to time; Negative for orientation impaired, confused, lethargic or stuporous Motor Exam: strength 5/5 throughout Psych mental status grossly normal and thought process normal Appearance: Negative for unkempt Attitude: No agitated Mood & Affect: Negative for depressed, anxious or tearful Skin no wounds General Skin Exam: Negative for jaundice or pallor Lesions: no lesions Rashes: no rashes Trauma: Negative for abrasion MDM MDM MDM Narrative Medical decision making narrative: 68-year-old male with constipation. Exam benign. Does not need any blood work. Does not need a CAT scan. Obtain a KUB. And then decide how or how to treat this. Repeat exam at 12:45 AM. Patient had his x-ray. Consistent with constipation. I discussed with him treatment options. He will be given COVID lightly to use at home. History & Record Review Discussion w/independent historian: Patient and Friend Additional record(s) reviewed:: Prior inpatient record, Prior outpatient record, Prior ED visit and Prior labs Radiography Diagnostic Testing: KUB, 2 views, interpreted by myself shows increased stool in the rectal vault and throughout his colon. No signs of obstruction. No dilated bowel. No air- fluid levels. Consistent with constipation. Discharge Plan Triage Chief Complaint: Constipation Other Complaint: GI Bleed ED Provider: Angel Treviño Dx/Rx/DC Orders Clinical Impression: Acute constipation Instructions: ED Constipation (Adult) Prescriptions: No Action calcium citrate 1,000 mg tablet 1,000 mg PO DAILY losartan 25 mg tablet 25 mg PO BID Primary Care Provider: Carlos Carrera Referrals: Carlos Carrera DO [Primary Care Provider] - As Needed Activity Restrictions/Additional Instructions: Plenty of fluids, fiber, fruits and vegetables erupted with bowel movement. We are giving you the liquid GoLytely. Drink a 6 to 8 ounce glass of this every hour starting later this morning and you should have a bowel movement in several hours. Follow-up with your doctor if not improving or if you have continued rectal bleeding. Print Language: Lithuanian Disposition Disposition: Home, Self Care
[2024-02-08] MEDS: Electrolyte Solution/Peg's 4000 ML 1000 ML PO (01:01)
== END 2024-02-08 01:02 | disposition home or self-care (01) ==
LOC: ED 00:52
PROVIDERS: Emergency Provider Emergency Medicine; PCP Family Medicine; Visit Provider Emergency Medicine
DX: K59.00 Constipation, unspecified (principal); R19.7 Diarrhea, unspecified; I10 Essential (primary) hypertension; N40.0 Benign prostatic hyperplasia without lower urinary tract symptoms
CPT/HCPCS: 74018; 99282

== ENCOUNTER → 2024-03-17 | Outpatient (CLI) | payer MEDICARE, SELFPAY ==
--- NOTE | 2024-03-17 13:33 | RAD_ITS ---
INDICATION: Pain, fall EXAMINATION/TECHNIQUE: X-RAY - XR Ribs Unilateral Min 2 Views COMPARISON: No relevant prior comparison study available FINDINGS: SOFT TISSUES: No soft tissue swelling or gas. BONES: No displaced fracture. No sclerotic or destructive changes observed. VISUALIZED LUNGS: Clear. No pneumothorax. RAD/Ribs Unil 2V No CXR IMPRESSION: No evidence of displaced rib fracture. Electronically Signed: Stanley Almaraz MD at 14:07 EDT ,
== END | disposition home or self-care (01) ==
LOC: MTRAD 13:29
PROVIDERS: PCP Family Medicine; Referring Provider Nurse Practitioner Family; Visit Provider Nurse Practitioner Family
DX: R07.81 Pleurodynia (principal); Z91.81 History of falling
CPT/HCPCS: 71100

== ENCOUNTER → 2024-10-26 | Outpatient (CLI) | payer MEDICARE, SELFPAY ==
[2024-10-26 14:07] LABS: PSA,Total - Annual Screen 1.53 ng/mL (0.00-4.00)
== END | disposition home or self-care (01) ==
LOC: LAB 13:16
PROVIDERS: PCP Family Medicine; Referring Provider Urology; Visit Provider Urology
DX: Z12.5 Encounter for screening for malignant neoplasm of prostate (principal)
CPT/HCPCS: 36415; 84153; G0103

== ENCOUNTER 2025-02-03 20:50 | Emergency (ER) | payer MEDICARE, SELFPAY ==
[2025-02-03 20:51] VITALS: BP 117/87; PULSE 95; RESP 17; TEMP 36.6; O2SAT 94; BMI 28.4
[2025-02-03 21:42] VITALS: BP 110/63; BP 120/66; BP 122/76; PULSE 78; PULSE 81; PULSE 82
--- NOTE | 2025-02-03 21:42 | EKG12_ITS ---
Test Reason : GEN ILL Blood Pressure : */* mmHG Vent. Rate : 80 BPM Atrial Rate : 80 BPM P-R Int : 154 ms QRS Dur : 96 ms QT Int : 370 ms P-R-T Axes : 64 1 41 degrees QTcB Int : 426 ms Normal sinus rhythm Incomplete right bundle branch block Borderline ECG Confirmed by Sterling Blanco ([id number]), acquisitions editor NA MCCALLUM ([id number]) on 02/12/2025 1:04:07 PM Referred By: Confirmed By: Sterling Blanco
[2025-02-03 21:57] VITALS: BP 107/60; PULSE 80; RESP 18; TEMP 36.5; O2SAT 98
[2025-02-03] MEDS: Meclizine HCl 25 MG Tablet PO (22:05)
--- NOTE | 2025-02-03 22:17 | RAD_ITS ---
PROCEDURE: CHEST PA AND LATERAL 02/03/2025 REASON FOR EXAM: COUGH TECHNIQUE: Frontal and lateral views of the chest. COMPARISON: None. FINDINGS: Hardware: None. Heart: The heart size is normal. Mediastinum: Probable ectasia of the ascending thoracic aorta. Lungs: Findings compatible with emphysema with scattered areas of scarring. No focal consolidation, pleural effusion or pneumothorax. Bones: Degenerative changes are identified within the thoracic spine. RAD/Chest PA and Lateral IMPRESSION: Emphysematous changes. No acute findings. Reading Location: [id number]
[2025-02-03 22:24] LABS: Absolute Lymphocyte Count 0.99 X10^3/uL (0.83-4.51); Absolute Neutrophil Count 8.3 X10^3/uL (2.0-7.7); Basophil# 0.02 X10^3/uL; Basophil% 0.2 % (0-1); Hematocrit 38.5 % (40-54); Hemoglobin 12.6 g/dL (13.0-16.5); Lymphocyte # 0.99 X10^3/ul (0.83-4.51); Mean Corp Hgb Conc 32.7 g/dL (32-36); Mean Corpuscular Hgb 29.2 pg (27.0-32.0); Mean Corpuscular Volume 89.3 fL (80-94); Mean Platelet Vol. 11.1 fl (6.2-12.0); Monocyte# 0.34 X10^3/uL; Monocyte% 3.4 % (0-10); NRBC Flagged by Analyzer 0 % (0-5); Neutrophil % 83.9 % (47-70); Platelet Count 156 K/mm3 (150-450); RBC Distribution Width CV 14.6 % (11.6-14.6); RBC Distribution Width SD 47.8 fl (35.1-43.9); Red Blood Count 4.31 M/mm3 (4.6-6.2); White Blood Count 9.9 K/mm3 (4.4-11.0)
--- NOTE | 2025-02-03 22:29 | EDS_ITS ---
HPI History of Present Illness Chief Complaint: General Illness Informant: patient Narrative Narrative: Patient is a 69-year-old male with history of hypertension and remote history of vertigo presenting with generalized malaise. He states for the past 5 to 6 days he has been feeling weak, tired, achy and dizziness. He has a hard time describing the dizziness to me as lightheaded versus vertigo. He tells me that maybe it is a little bit of vertigo but is very mild but he also maybe feels a little bit lightheaded. He is also had a dry cough. He states he has been feeling very thirsty. He denies any associated nausea vomiting or diarrhea. For the last 2 mornings when he is got up to take his normal morning medications at 5:30 AM he is also taken ibuprofen. Couple hours later (he is going back to sleep after this) he is woke up drenched in sweat. He has noticed a decreased appetite. Did have wound to his left forearm earlier this week that he cleaned himself and has not had any issues with since. He states is healing well. He thought maybe it could be a tick bite but never actually saw a tick on him. Denies any other rash or skin changes. Denies any fevers. Denies any swelling of his legs. Denies any urinary symptoms. No other complaints or concerns reported at this time. Has been taking [id number] medication including Mucinex, NyQuil and ibuprofen with some relief of his symptoms but then they wear off and the symptoms returned. [facility] Medical History BPH (benign prostatic hyperplasia) Hypertension Bladder stones Home Medications ?Medication ?Instructions ?Recorded ?Last Taken ?Type calcium citrate 1,000 mg tablet 1,000 mg PO DAILY 08/13 11/05 Unknown History losartan 25 mg tablet 25 mg PO .once 08/24/23 Unkn own History Allergy/AdvReac Type Severity Reaction Status Date / Time No Known Allergies Allergy Verified 02/03/25 20:57 Family History Other Heart disease Surgical History History of lumbar surgery (~01/2023) Previous back surgery (~1986) Social History Smoking Status: Never smoker alcohol intake: current Alcohol type: beer substance use type: does not use what type of 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 Denies congestion. ; Denies rhinorrhea or sore throat Cardiovascular Cardiovascular: Denies chest pain or palpitations Respiratory/Chest Respiratory/Chest: Reports cough; Denies dyspnea or sputum Gastrointestinal Gastrointestinal: Denies abdominal pain, diarrhea, nausea or vomiting Genitourinary Genitourinary ED: Denies dysuria or urinary frequency Musculoskeletal Musculoskeletal: Reports myalgias; Denies arthralgias Integumentary Denies rash Neurologic Neurologic: Reports headache(s) and weakness; Denies paresthesias Psychiatric Psychiatric: Denies anxiety Hematologic/Lymphatic Hematologic/Lymphatic: Denies easy bleeding or easy bruising EXAM Physical Exam Const Vital Signs: 02/03/25 20:51 02/03/25 21:15 02/03/25 21:42 Temperature 97.9 F Temperature Source Temporal Pulse Rate 95 Pulse Rate [Lying] 78 Pulse Rate [Sitting (for 1 minute prior to obtaining)] 81 Pulse Rate [Standing (for 1 minute prior to obtaining)] 82 Respiratory Rate 17 Respiratory Effort Non-Labored Respiratory Pattern Normal Blood Pressure 117/87 H Blood Pressure [Lying] 110/63 Blood Pressure [Sitting (for 1 minute prior to obtaining)] 122/76 H Blood Pressure [Standing (for 1 minute prior to obtaining)] 120/66 Blood Pressure Mean 97 Blood Pressure Mean [Lying] 78 Blood Pressure Mean [Sitting (for 1 minute prior to obtaining)] 91 Blood Pressure Mean [Standing (for 1 minute prior to obtaining)] 84 Pulse Ox 94 Oxygen Delivery Method Room Air 02/03/25 21:57 02/03/25 22:51 Temperature 97.7 F L 98 F Temperature Source Oral Oral Pulse Rate 80 82 Pulse Rate [Lying] Pulse Rate [Sitting (for 1 minute prior to obtaining)] Pulse Rate [Standing (for 1 minute prior to obtaining)] Respiratory Rate 18 18 Respiratory Effort Respiratory Pattern Blood Pressure 107/60 120/66 Blood Pressure [Lying] Blood Pressure [Sitting (for 1 minute prior to obtaining)] Blood Pressure [Standing (for 1 minute prior to obtaining)] Blood Pressure Mean 75 84 Blood Pressure Mean [Lying] Blood Pressure Mean [Sitting (for 1 minute prior to obtaining)] Blood Pressure Mean [Standing (for 1 minute prior to obtaining)] Pulse Ox 98 98 Oxygen Delivery Method Room Air Room Air Positive well nourished and well developed General Appearance ED: well developed and NAD HEENT Reports TM's clear HEENT Narrative: Minimally dry mucosal membranes. Normal oropharynx. Tympanic Membrane ED: Yes TM's clear Eyes PERRL and EOMs intact bilaterally Eyes Narrative: No nystagmus appreciated Neck supple and no JVD Chest Wall inspection of chest normal and palpation of chest normal Resp normal respiratory effort and clear to auscultation bilaterally Auscultation: Negative for rhonchi or wheezes Cardio regular rate, regular rhythm and no murmurs GI normal to inspection, nondistended, normoactive bowel sounds and non-tender Extremity normal to inspection Neuro oriented x3 Neuro Narrative: Normal coordination. Normal speech. Steady gait in the emergency room. Sensorium / Orientation: alert Motor Exam: Negative for general weakness Psych mental status grossly normal Skin no rashes or lesions noted and no wounds Skin Narrative: Healing small abrasion to the left forearm. MDM MDM MDM Narrative Medical decision making narrative: Patient valuated for vague sense of feeling weak, dizzy and lightheaded. Is a dry cough. Overall is well-appearing. Vital signs are normal. Differential includes viral syndrome, vertigo, hypovolemia, WANDER, arrhythmia, symptomatic anemia, pneumonia. Did discuss possibly Lyme disease as patient thought maybe he had a tick bite but he never actually saw taken has not had any other rash. Not have any fevers. Will defer lyme disease testing after shared medical decision making. Lab work shows mild anemia with hemoglobin 12.6 which is nonspecific. Normal white blood cell count. No left shift. CMP shows CKD with creatinine of 1.68 however this is near his baseline (creatinine 1.571-year ago). BUN also mildly elevated at 37 (was 26 a year ago). He has a very mild transaminitis with AST of 46, ALT of 56 and alkaline phosphatase 160. He has normal bilirubin. Likely of a GI symptoms. Will be informed of this finding and he can follow-up with his outpatient. Urinalysis is pending. Patient asymptomatic during orthostatic vital signs per nursing report. On repeat evaluation after meclizine he states he feels a little bit better from a dizziness standpoint. He notes that he still has a headache he describes as temporal and throbbing. Urine is dark at the bedside. He does not have any ketones in the urine however there is some sediment. Will be given a liter of IV fluid. Orthostatics are negative and do not think this is hypovolemia. Patient informed of findings. Discussed that this could be viral in nature or possibly allergic. Will send urine off for culture and if positive treat. Patient given return precautions. Encouraged follow with primary care doctor for mild transaminitis. Notes that he was drinking a couple weeks ago but does not regularly drink. Discussed using Mucinex for cough and congestion. Lab Data Attestation: I reviewed the patient's lab results. Labs: Laboratory Results - last 24 hr 02/03/25 02/03/25 22:11 22:50 WBC 9.9 RBC 4.31 L Hgb 12.6 L Hct 38.5 L MCV 89.3 MCH 29.2 MCHC 32.7 RDW Std Deviation 47.8 H RDW Coeff of Colt 14.6 Plt Count 156 MPV 11.1 Immature Gran % (Auto) 0.500 Neut % (Auto) 83.9 H Lymph % (Auto) 10.0 L [place] % (Auto) 3.4 Eos % (Auto) 2.0 Baso % (Auto) 0.2 Absolute Neuts (auto) 8.3 H Absolute Lymphs (auto) 0.99 Nucleated RBC % 0 Sodium 134 Potassium 4.2 Chloride 101 Carbon Dioxide 21.6 Anion Gap 12 BUN 37 H Creatinine 1.68 H Estim Creat Clear Calc 45.48 L Est GFR (MDRD) Non-Af 43 L BUN/Creatinine Ratio 22.1 H Glucose 103 H Calcium 8.4 Total Bilirubin 0.45 AST 46 H ALT 56 H Alkaline Phosphatase 160 H Total Protein 7.1 Albumin 3.7 Globulin 3.4 Albumin/Globulin Ratio 1.1 Urine Color Yellow Urine Clarity Clear Urine pH 6.0 Ur Specific [place] 1.020 Urine Protein 30 H Urine Glucose (UA) Normal Urine Ketones Negative Urine Occult Blood 25 H Urine Nitrite Negative Urine Bilirubin Negative Urine Urobilinogen Normal Ur Leukocyte Esterase Negative Urine RBC 0-5 SEEN Urine WBC 0-5 SEEN Ur Squamous Epith Cells 0-5 SEEN Amorphous Sediment 1+ Urine Bacteria 3+ Urine Mucus 1+ Radiography Diagnostic Testing: Clinical Impression(s) from Imaging Studies Chest X-Ray 02/03/25 22:17 IMPRESSION: Emphysematous changes. No acute findings. Reading Location: [facility] Rhythm Strip Rhythm Strip: Sinus Rhythm Rate: 80 Ectopy: None EKG Initial EKG: Attestation: I personally reviewed and interpreted this EKG as follows: Interpretation: Sinus Rhythm Comments: Normal sinus rhythm rate of 80 bpm Normal axis Normal ST segments Incomplete right bundle branch block Prior EKG tracings: available for review Prior: Unchanged Discharge Plan Triage Chief Complaint: General Illness ED Provider: Jessika Sears Dx/Rx/DC Orders Clinical Impression: Headache, Dizziness, Cough, Elevated serum creatinine, Transaminitis Instructions: ED Dizziness, Uncertain Cause, ED Symptoms Uncertain Cause Prescriptions: No Action calcium citrate 1,000 mg tablet 1,000 mg PO DAILY losartan 25 mg tablet 25 mg PO .once Primary Care Provider: Carlos Carrera Referrals: Carlos Carrera, [Primary Care Provider] - Activity Restrictions/Additional Instructions: Your workup did not show any acute emergent process to explain his symptoms. It is possible this could be viral or allergies or mixture of these. Your serum creatinine was mildly elevated but near your baseline from a year ago. Because of this please make sure you are drinking plenty of water so your urine is light yellow and avoid taking NSAID such as ibuprofen as first-line pain medication. I would recommend Tylenol/acetaminophen instead. You do have a mild transaminitis (elevation of your liver enzymes, AST, ALT and alkaline phosphatase). Please follow-up with your primary care doctor for this as you might require liver ultrasound or repeat check to ensure that it normalizes. You may take Mucinex as well as [id number] cough/congestion medication to help with your symptoms. If your symptoms worsen please do not hesitate to r eturn to the emergency room. Print Language: [place]
[2025-02-03 22:43] LABS: ALB/GLOB Ratio 1.1 RATIO (0.9-2.4); AST(SGOT) 46 U/L (<=37); Alanine Aminotransfer ALT/SGPT 56 U/L (<=46); Albumin, Serum 3.7 g/dL (3.4-4.8); Alkaline Phosphatase 160 U/L (40-129); Anion Gap 12 (5-15); BUN 37 mg/dL (4-19); BUN/Creat Ratio 22.1 RATIO (10-20); Calcium,Total 8.4 mg/dL (7.6-11.0); Carbon Dioxide 21.6 mmol/L (21.0-32.0); Chloride 101 mmol/L (98-108); Creatinine, Serum 1.68 mg/dL (0.70-1.20); EST Glomerular Filtration Rate 43 (>60); Estimated Creatinine Clearance 45.48 ml/min (50-250); Globulin 3.4 g/dL (2.2-4.2); Glucose 103 mg/dL (70-99); Potassium 4.2 mmol/L (3.3-5.1); Protein, Total 7.1 g/dL (5.9-8.4); Sodium Level 134 mmol/L (133-145); Total Bilirubin 0.45 mg/dL (0.00-1.30)
[2025-02-03 22:51] VITALS: BP 120/66; PULSE 82; RESP 18; TEMP 36.6; O2SAT 98
[2025-02-03 22:58] LABS: Color, Urine Yellow (Yellow); Glucose, Dipstick Normal (Normal); Ketone-Dipstick Negative (Negative); Leukocyte Esterase-Dipstick Negative /ul (Negative); Nitrite-Dipstick Negative (Negative); Occult Blood-Urine 25 /ul (Negative); Protein-Dipstick 30 mg/dl (Negative); Urine Bilirubin Dipstick Negative (Negative); Urine Clarity Clear (Clear); Urine Urobilinogen Normal (Normal)
[2025-02-03 23:00] VITALS: BP 115/69; PULSE 79; RESP 16; TEMP 36.7; O2SAT 98
[2025-02-03 23:31] LABS: Red Blood Cells-Urine 0-5 SEEN /hpf (0-5); Squamous Epithelial Cells - UA 0-5 SEEN /hpf (0-5); White Blood Cells 0-5 SEEN /hpf (0-5)
[2025-02-03 23:32] LABS: Amorphous Sediment 1+; Bacteria 3+ /hpf (None Seen); Mucous, Urine 1+ /hpf (<or=2+)
[2025-02-03] MEDS: 0.9% Normal Saline (1000mL) 1,000 ML 999 ML IV (23:45)
[2025-02-03] MEDS: Acetaminophen 325 MG Tablet 650 MG PO (23:46)
[2025-02-03 23:51] VITALS: BP 116/70; PULSE 77; RESP 16; TEMP 36.7; O2SAT 98
[2025-02-04 00:43] VITALS: BP 95/58; PULSE 72; RESP 16; TEMP 36.7; O2SAT 98
== END 2025-02-04 00:48 | disposition home or self-care (01) ==
LOC: ED 21:45
PROVIDERS: Emergency Provider Emergency Medicine; PCP Family Medicine; Visit Provider Emergency Medicine
DX: R51.9 Headache, unspecified (principal); D64.9 Anemia, unspecified; N18.9 Chronic kidney disease, unspecified; R74.01 Elevation of levels of liver transaminase levels; R79.89 Other specified abnormal findings of blood chemistry; I12.9 Hypertensive chronic kidney disease with stage 1 through stage 4 chronic kidney disease, or unspecified chronic kidney disease; R42 Dizziness and giddiness; R53.81 Other malaise
CPT/HCPCS: 71046; 80053; 81001; 85025; 87086; 93005; 96360; 99285; A4216

== ENCOUNTER → 2025-03-12 | Outpatient (CLI) | payer MEDICARE, SELFPAY ==
--- NOTE | 2025-03-12 16:31 | RAD_ITS ---
PROCEDURE: CHEST PA AND LATERAL 03/12/2025 REASON FOR EXAM: COUGH SINCE JANUARY, OFF AND ON TECHNIQUE: CHEST PA AND LATERAL COMPARISON: 02/03/2025 FINDINGS: No focal consolidation. No pleural effusion or pneumothorax. Cardiac silhouette is within normal limits. RAD/Chest PA and Lateral IMPRESSION: No focal consolidations. Reading Location: [id number]
[2025-03-12 17:59] LABS: Absolute Lymphocyte Count 1.04 X10^3/uL (0.83-4.51); Absolute Neutrophil Count 4.1 X10^3/uL (2.0-7.7); Basophil# 0.04 X10^3/uL; Basophil% 0.7 % (0-1); Eosinophil# 0.43 X10^3/uL; Eosinophils% 7.4 % (0-5); Hematocrit 36.6 % (40-54); Hemoglobin 11.7 g/dL (13.0-16.5); Lymphocyte # 1.04 X10^3/ul (0.83-4.51); Lymphocyte % 17.8 % (19-41); Mean Corpuscular Hgb 28.6 pg (27.0-32.0); Mean Corpuscular Volume 89.5 fL (80-94); Mean Platelet Vol. 10.6 fl (6.2-12.0); Monocyte# 0.26 X10^3/uL; Monocyte% 4.5 % (0-10); NRBC Flagged by Analyzer 0 % (0-5); Neutrophil # 4.05 X10^3/uL (2.7-7.7); Neutrophil % 69.3 % (47-70); Platelet Count 253 K/mm3 (150-450); RBC Distribution Width CV 15.1 % (11.6-14.6); RBC Distribution Width SD 49.4 fl (35.1-43.9); Red Blood Count 4.09 M/mm3 (4.6-6.2); White Blood Count 5.8 K/mm3 (4.4-11.0)
[2025-03-12 18:16] LABS: Erythrocyte Sedimentation Rate 30 mm/hr (0-20)
[2025-03-12 19:01] LABS: ALB/GLOB Ratio 1.1 RATIO (0.9-2.4); AST(SGOT) 16 U/L (<=37); Alanine Aminotransfer ALT/SGPT 13 U/L (<=46); Albumin, Serum 3.8 g/dL (3.4-4.8); Alkaline Phosphatase 96 U/L (40-129); Anion Gap 11 (5-15); BUN 25 mg/dL (4-19); BUN/Creat Ratio 16.3 RATIO (10-20); Calcium,Total 9.2 mg/dL (7.6-11.0); Chloride 104 mmol/L (98-108); Creatinine, Serum 1.52 mg/dL (0.70-1.20); EST Glomerular Filtration Rate 49 (>60); Globulin 3.5 g/dL (2.2-4.2); Glucose 125 mg/dL (70-99); Potassium 3.9 mmol/L (3.3-5.1); Protein, Total 7.3 g/dL (5.9-8.4); Sodium Level 138 mmol/L (133-145); Total Bilirubin 0.32 mg/dL (0.00-1.30)
[2025-03-12 19:29] LABS: Ferritin 233 ng/mL (37-417); Iron 37 ug/dL (65-175); Vitamin B12 413 pg/mL (180-914); Vitamin D,25 Hydroxy 24.1 ng/mL (30-100)
[2025-03-15 16:09] LABS: Lyme IgG P18 Ab Present (.); Lyme IgG P23 Ab Present (.); Lyme IgG P28 Ab Absent (.); Lyme IgG P30 Ab Absent (.); Lyme IgG P39 Ab Present (.); Lyme IgG P41 Ab Present (.); Lyme IgG P45 Ab Absent (.); Lyme IgG P58 Ab Present (.); Lyme IgG P66 Ab Absent (.); Lyme IgG P93 Ab Absent (.); Lyme IgG WB Interpretation Positive (Negative); Lyme IgM P23 Ab Present (.); Lyme IgM P39 Ab Present (.); Lyme IgM P41 Ab Present (.); Lyme IgM WB Interpretation Positive (Negative)
== END | disposition home or self-care (01) ==
PROVIDERS: PCP Family Medicine; Referring Provider Nurse Practitioner Family; Visit Provider Nurse Practitioner Family
DX: R05.9 Cough, unspecified (principal); R53.83 Other fatigue; Z20.828 Contact with and (suspected) exposure to other viral communicable diseases; E56.9 Vitamin deficiency, unspecified; D50.9 Iron deficiency anemia, unspecified; E03.9 Hypothyroidism, unspecified; R07.9 Chest pain, unspecified; M25.50 Pain in unspecified joint; I10 Essential (primary) hypertension
CPT/HCPCS: 36415; 71046; 80053; 82306; 82607; 82728; 83540; 84439; 84443; 85025; 85652; 86140; 86617

== ENCOUNTER → 2025-04-24 | Outpatient (CLI) | payer MEDICARE, SELFPAY ==
--- NOTE | 2025-04-24 18:07 | CT_ITS ---
PROCEDURE: CHEST WITH CONTRAST 04/24/2025 REASON FOR EXAM: COUGH No current issues. TECHNIQUE: CHEST WITH CONTRAST Coronal and Sagittal reconstruction series were provided. CONTRAST: Isovue-300 VOLUME: 100 mL One or more dose reduction techniques were used (e.g., Automated exposure control, adjustment of the mA and/or kV according to patient size, use of iterative reconstruction technique). RADIATION DOSE SUMMARY: CTDlvol: 13.3 mGy DLP: 521.26 mGycm COMPARISON: Prior chest radiograph dated March 12, 2025. FINDINGS: Hardware: None Lymph nodes: Small benign-appearing bilateral axillary lymph nodes. Small mediastinal lymph nodes. Heart and Vasculature: Coronary artery calcification. Lungs and Airways: The lungs are well aerated. No evidence of pulmonary nodule or infiltration. No mass lesion is seen. Pleura: No pleural effusion. Upper Abdomen: There is a 4.3 cm x 3.7 cm cyst in the upper lateral aspect of the right kidney. Bones: Degenerative changes of the thoracic spine. CT/Chest WITH Contrast IMPRESSION: Coronary artery calcification (CAC) is is present No pulmonary abnormality is seen. Reading Location: [id number]
== END | disposition home or self-care (01) ==
LOC: CT 17:59
PROVIDERS: PCP Family Medicine; Referring Provider Family Medicine; Visit Provider Family Medicine
DX: R05.8 Other specified cough (principal)
CPT/HCPCS: 71260; Q9967

== ENCOUNTER → 2025-05-02 | Outpatient (CLI) | payer MEDICARE, SELFPAY ==
[2025-05-02 15:51] LABS: CRP 11.00 mg/L (0.0-3.0); Cholesterol 202 mg/dL (<=200); Low Density Lipoprotein Calc. 139 mg/dL; Triglycerides 120 mg/dL; Very Low Density Lipoprotein 24 mg/dL (5-40); cholesterol:hdl ratio screen 5.23
== END | disposition home or self-care (01) ==
LOC: MTLAB 11:40
PROVIDERS: PCP Family Medicine; Referring Provider Family Medicine; Visit Provider Family Medicine
DX: I25.10 Atherosclerotic heart disease of native coronary artery without angina pectoris (principal); A69.20 Lyme disease, unspecified
CPT/HCPCS: 36415; 80061; 85652; 86140

== ENCOUNTER → 2025-08-31 | Outpatient (CLI) | payer MEDICARE, SELFPAY | END | disposition home or self-care (01) | LOC: LABSPEC 15:28 | PROVIDERS: PCP Family Medicine; Visit Provider Family Medicine | DX: N39.0 Urinary tract infection, site not specified (principal) | CPT/HCPCS: 87086 ==